=== PATIENT | female | born 1960 | race Caucasian/White ===

== ENCOUNTER 2020-03-01 14:31 | Outpatient (CLI) | payer MEDICARE, SELFPAY ==
[2020-03-01 15:08] LABS: Basophils % 0.6 %; Eosinophils # 0.3 10^3/uL (0.0-0.8); Eosinophils % 3.8 %; Hematocrit 44.7 % (37.0-47.0); Hemoglobin 14.5 g/dL (11.5-15.3); Lymphocytes # 2.4 10^3/uL (0.8-4.8); Lymphocytes % 34.1 %; Mean Corpuscular HGB Conc 32.4 g/dL (30.0-36.0); Mean Corpuscular Hemoglobin 31.5 pg (28.0-34.0); Mean Corpuscular Volume 97.2 fL (81-99); Mean Platelet Volume 9.7 fL (7.4-10.4); Monocytes # 0.7 10^3/uL (0.2-0.9); Monocytes % 9.8 %; Neutrophils # 3.6 10^3/uL (1.8-7.7); Neutrophils % 51.1 %; Nucleated Red Blood Cells % 0 %; Platelet Count 359 10^3/cmm (130-400); White Blood Count 6.9 10^3/uL (4.0-10.0)
[2020-03-02 16:36] LABS: Alternaria Alternata (M6) Ige <0.10 kU/L; Alternaria Class 0; Bermuda Class 0; Bermuda Grass (G2) Ige <0.10 kU/L; Cat Dander (E1) Ige <0.10 kU/L; Cat Dander Class 0; Common Ragweed (Short) (W1) Ig <0.10 kU/L; D. Farinae Class 0; Dermatophagoides Class 0; Dermatophagoides Farinae (D2) <0.10 kU/L; Dermatophagoides Pteronyssinus <0.10 kU/L; Dog Dander (E5) Ige <0.10 kU/L; Dog Dander Class 0; Elm (T8) Ige <0.10 kU/L; Elm Class 0; English Plantain (W9) Ige <0.10 kU/L; English Plantain Class 0; House Dust (Greer) (H1) Ige <0.10 kU/L; House Dust (Hollister- Stier) <0.10 kU/L; House Dust Class 0; Immunoglobulin E 29 kU/L (<OR=114); Immunoglobulin E 31 kU/L (<OR=114); Johnson Grass (G10) Ige <0.10 kU/L; Johnson Grass Cl 0; June Grass Class 0; June Grass(Kentucky Blue) (G8) <0.10 kU/L; Lamb'S Quarters (Goose Foot) <0.10 kU/L; Lamb'S Quarters Class 0; Maple (Box Elder) (T1) Ige <0.10 kU/L; Maple Class 0; Meadow Fescue (G4) Ige <0.10 kU/L; Meadow Fescue Class 0; Mucor Racemosus Class 0; Oak (T7) Ige <0.10 kU/L; Oak Class 0; Orchard Grass (Cocksfoot) (G3) <0.10 kU/L; Penicillium Class 0; Penicillium Notatum (M1) Ige <0.10 kU/L; Perennial Rye Grass (G5) Ige <0.10 kU/L; Perennial Rye Grass Class 0; Ragweeed Class 0; Rough Marsh Elder (W16) Ige <0.10 kU/L; Rough Marsh Elder Class 0; Sweet Vernal Class 0; Sweet Vernal Grass (G1) Ige <0.10 kU/L; Timothy Grass (G6) Ige <0.10 kU/L; Timothy Grass Class 0
[2020-03-06 16:17] LABS: Aspergillus Fumigatus, Igg Ab, 30.4 mg/L (<=102)
== END 2020-03-01 14:32 | disposition home or self-care (01) ==
LOC: LAB 14:37
PROVIDERS: Family Provider Internal Medicine; PCP Internal Medicine; Visit Provider Internal Medicine Critical Care Medicine
DX: J45.909 Unspecified asthma, uncomplicated (principal); R06.02 Shortness of breath
CPT/HCPCS: 36415; 82785; 85025; 86003

== ENCOUNTER 2020-04-07 18:32 | Emergency (ER) | payer MEDICARE, SELFPAY ==
[2020-04-07 18:39] VITALS: BP 156/93; PULSE 85; RESP 18; TEMP 36.8; O2SAT 97; BMI 35.4
[2020-04-07 20:15] LABS: Basophils # 0.1 10^3/uL (0.0-0.1); Basophils % 0.5 %; Eosinophils # 0.3 10^3/uL (0.0-0.8); Eosinophils % 2.8 %; Hematocrit 44.1 % (37.0-47.0); Hemoglobin 14.2 g/dL (11.5-15.3); Lymphocytes % 27.2 %; Mean Corpuscular HGB Conc 32.2 g/dL (30.0-36.0); Mean Corpuscular Hemoglobin 31.4 pg (28.0-34.0); Mean Corpuscular Volume 97.6 fL (81-99); Mean Platelet Volume 9.6 fL (7.4-10.4); Monocytes % 9.1 %; Neutrophils # 6.6 10^3/uL (1.8-7.7); Neutrophils % 59.9 %; Nucleated Red Blood Cells % 0 %; Platelet Count 317 10^3/cmm (130-400); Red Blood Count 4.52 10^6/uL (4.1-5.3); Red Cell Distribution Width 13.1 % (12.1-15.1)
[2020-04-07 20:32] LABS: Alanine Aminotransferase 39 U/L (0-33); Albumin Level 4.5 g/dL (3.5-5.2); Alkaline Phosphatase 72 IU/L (35-105); Anion Gap 17.1 (5-19); Aspartate Amino Transferase 22 U/L (0-32); Blood Urea Nitrogen 13 mg/dL (6-20); Calcium 9.7 mg/dL (8.5-10.5); Carbon Dioxide 26 mmol/L (22-29); Chloride 103 mmol/L (98-107); Globulin 2.3 g/dL (1.3-4.6); Glomerular Filtration Rate 51.2 mL/min (90-130); Glucose 116 mg/dL (65-115); Lipase 23 U/L (13-60); Osmolality Calculated 291 mOsm/kg (285-295); Potassium 4.1 mmol/L (3.5-5.1); Sodium 142 mmol/L (136-145); Total Bilirubin 0.3 mg/dL (0.15-1.2); Total Protein 6.8 g/dL (6.6-8.7)
[2020-04-07 20:34] LABS: Slide Review Slide Review Perform
--- NOTE | 2020-04-07 20:53 | CTR_ITS ---
PROCEDURE INFORMATION: Exam: CT Abdomen And Pelvis With Contrast Exam date and time: 04/07/2020 8:57 PM Age: 59 years old Clinical indication: Abdominal pain; Generalized; Prior surgery; Surgery type: Hysterectomy cholecystectomy bladder; Additional info: Left abd pain TECHNIQUE: Imaging protocol: Computed tomography of the abdomen and pelvis with intravenous contrast. Radiation optimization: All CT scans at this facility use at least one of these dose optimization techniques: automated exposure control; mA and/or kV adjustment per patient size (includes targeted exams where dose is matched to clinical indication); or iterative reconstruction. Contrast material: VISI; Contrast volume: 95 ml; Contrast route: 18G; COMPARISON: No relevant prior studies available. RADIATION DOSE METRICS: Total DLP: 1681.09 mGy-cm FINDINGS: Lungs: Limited assessment lung bases without visible evidence of active cardiopulmonary process. Liver: Mild diffuse fatty infiltration of the liver. Hepatomegaly. Gallbladder and bile ducts: Status post cholecystectomy. Pancreas: Normal. No ductal dilation. Spleen: Rare splenic calcified granuloma. Spleen otherwise unremarkable. Adrenals: Normal. No mass. Kidneys and ureters: Normal. No hydronephrosis. Stomach and bowel: Evidence of focal low-grade epiploic appendagitis proximal descending colon just past the splenic flexure. Diverticulosis coli without visible evidence of acute diverticulitis. Nonobstructive bowel pattern. No visible adynamic or reactive ileus. Appendix: The appendix is visualized and appears noninflamed. Intraperitoneal space: Unremarkable. No free air. No significant fluid collection. Vasculature: Unremarkable. No abdominal aortic aneurysm. Lymph nodes: Unremarkable. No enlarged lymph nodes. Bladder: Bladder without filling defect. No asymmetrical bladder wall thickening. Reproductive: Status post hysterectomy. Bones/joints: Bilateral spondylolysis L5/S1 with grade 2 spondylolisthesis. Advanced degenerative disc disease L5/S1 with disc space height loss. Soft tissues: Obesity. CT/CT abdomen pelvis w con* [id number] IMPRESSION: Evidence of focal low-grade epiploic appendagitis proximal descending colon just past the splenic flexure. Radiation Dose CTDIVOL = (mGy): DLP = 1681.09 (mGy-cm)
[2020-04-07 20:56] VITALS: BP 137/90; PULSE 92; RESP 18; O2SAT 97
[2020-04-07 21:00] LABS: Add Urine Microscopic? NO
[2020-04-07] MEDS: ondansetron 2 mg/ML SDV 2 mL 4 MG IVP (21:01)
[2020-04-07 21:02] VITALS: RESP 18; O2SAT 96
[2020-04-07 21:02] LABS: Bilirubin Urine Neg (NEGATIVE); Blood Urine Neg (Negative); Glucose Urine UA Norm (Normal); Ketones Urine Negative (Negative); Leukocyte Esterase Urine Negative (Negative); Nitrate Urine Negative (Negative); Protein Urine Neg (Negative); Specific Gravity, Urine 1.015 (1.005-1.030); Urine Appearance Clear (CLEAR); Urine Color Yellow (Yellow); Urobilinogen Urine Norm (Negative); pH Urine 5 (5-7)
[2020-04-07] MEDS: fentaNYL 50 mcg/mL INJ 2mL IVP (21:02)
--- NOTE | 2020-04-07 21:18 | ED_ITS ---
HPI - Abdominal Pain General: Chief Complaint: Abdominal Pain Stated Complaint: side pain Time Seen by Provider: 04/07/20 20:39 History of Present Illness: HPI narrative: 89-year-old female, with a stated history of diverticulitis in the past. She has been experiencing left-sided belly pain for the last couple of days. She is anorexic. No fever. No vomiting. She has had yellow liquidy stool today. No blood in the stool. History of belly surgery includes a hysterectomy and bladder tuck surgery. She has multiple family members who had diverticulitis. No pain when she urinates. No change in her urine. MD elicited complaint: abdominal pain Pertinent past history: constipation and diverticulitis Onset (ago): day(s) (2) Location: LLQ Severity: moderate Quality: stabbing and aching Radiation: none Migration to: no migration Exacerbating factors: bowel movement Relieving factors: nothing Associated Symptoms: Reports anorexia and nausea; Denies dysuria, fever(s) and hematuria Review of Systems Const: Denies: fever(s) Eyes: Denies: change in vision ENMT: Denies: swelling of lips/tongue, change in hearing or sinus pain Card: Denies: chest pain, palpitations or irregular heart rhythm Resp: Denies: dyspnea, productive cough, non-productive cough or wheezing GI: Reports: nausea : Denies: dysuria, urinary frequency, urinary urgency or hematuria Musc: Denies: neck pain or back pain Skin/Breast: Denies: rash or pruritus Neuro: Denies: headache(s), dizziness or vertigo Psych: Denies: anxiety PFSH ED PFSH: Medical History (Updated 04/07/20 @ 22:00 by Rayshawn Paris DO) Asthma Bronchitis Chronic back pain Fibromyalgia HTN (hypertension) Pneumonia Rectocele Seasonal allergies Surgical History (Updated 03/01/20 @ 14:08 by Mirza Morales MD) H/O shoulder surgery History of bladder surgery History of cholecystectomy History of hysterectomy Family History Sister Lung disease Asthma Social History Smoking and tobacco status: never smoked Second hand smoke exposure: No Alcohol intake: never Lives independently: Yes Household members: spouse Marital status: Current occupational status: disabled History of recent travel: No Current gender identity: Female Physical Exam Const: GENERAL APPEARANCE: well developed ORIENTATION/CONSCIOUSNESS: Yes oriented to person, Yes oriented to place and Yes oriented to time HENMT: COMMON NORMALS: normocephalic, external ears normal and Normal external nose present HEAD & SCALP: normocephalic FACE & SINUS: normal facial exam NOSE: Normal external nose present and No nasal discharge present EXTERNAL EAR: Yes external ears normal MOUTH: tongue normal Eye: COMMON NORMALS: Equal, round and reactive pupils present, EOMs intact bilaterally and conjunctivae normal EYELID: eyelids normal CONJUNCTIVA: Yes conjunctivae normal PUPIL: Yes Equal, round and reactive pupils present Neck/C-Spine: GENERAL: No tracheal deviation Chest: COMMONS NORMALS: normal inspection of the chest CHEST: No tenderness Resp: COMMON NORMALS: clear to auscultation bilaterally EFFORT & INSPECTION: No tachypneic, No respiratory distress, No retractions, No uses accessory muscles and No tracheal deviation AUSCULTATION: clear to auscultation bilaterally, no rhonchi, no wheezes and lung sounds not diminished Cardio: COMMON NORMALS: regular rate and regular rhythm RATE: regular rate RHYTHM: regular rhythm HEART SOUNDS: no murmurs PERIPHERAL PULSES: radial pulses present GI: INSPECTION: No abdominal distension AUSCULTATION: No Hyperactive bowel sounds present and No Hypoactive bowel sounds present PALPATION: Yes Tenderness to palpation present (GI) Details: LLQ, No Guarding due to palpation present (GI) and No Rigid due to palpation PERCUSSION: no dullness to percussion and no tympanic to percussion Neuro: SENSORIUM/ORIENTATION: Yes oriented to person, Yes oriented to place and Yes oriented to time Psych: COMMON NORMALS: mental status grossly normal Skin: COMMON NORMALS: no rashes or lesions noted GENERAL SKIN EXAM: no rashes or lesions noted Course Vital Signs: Vital signs: Vital Signs Temperature 98.2 F 04/07/20 18:39 Pulse Rate 89 04/07/20 22:18 Respiratory Rate 18 04/07/20 22:18 Blood Pressure 130/89 04/07/20 22:18 Pulse Oximetry 98 04/07/20 22:18 MDM - Abdominal Pain MDM Narrative: Medical decision making narrative: 59-year-old female with left lower quadrant pain and a family history of diverticulitis. She has a white blood cell count of 11. Other laboratory is benign. CT scan shows left-sided epiploic appendagitis. Natural history was explained to the patient as well as the usual course. She demonstrates understanding. Lab Data: Labs: Lab Results 04/07/20 04/07/20 04/07/20 Range/Units 20:00 20:00 20:50 WBC 11.0 H (4.0-10.0) 10^3/ uL RBC 4.52 (4.1-5.3) 10^6/u L Hgb 14.2 (11.5-15.3) g/dL Hct 44.1 (37.0-47.0) % MCV 97.6 (81-99) fL MCH 31.4 (28.0-34.0) pg MCHC 32.2 (30.0-36.0) g/dL RDW 13.1 (12.1-15.1) % Plt Count 317 (130-400) 10^3/c mm MPV 9.6 (7.4-10.4) fL Neut % (Auto) 59.9 % Lymph % (Auto) 27.2 % Branch % (Auto) 9.1 % Eos % (Auto) 2.8 % Baso % (Auto) 0.5 % Neut # (Auto) 6.6 (1.8-7.7) 10^3/u L Lymph # (Auto) 3.0 (0.8-4.8) 10^3/u L Branch # (Auto) 1.0 H (0.2-0.9) 10^3/u L Eos # (Auto) 0.3 (0.0-0.8) 10^3/u L Baso # (Auto) 0.1 (0.0-0.1) 10^3/u L Nucleated RBC % (a uto) 0 % Nucleated RBCs # 0.0 /100WBC Sodium 142 (136-145) mmol/L Potassium 4.1 (3.5-5.1) mmol/L Chloride 103 (98-107) mmol/L Carbon Dioxide 26 (22-29) mmol/L Anion Gap 17.1 (5-19) BUN 13 (6-20) mg/dL Creatinine 1.1 H (0.5-0.9) mg/dL GFR Calculation 51.2 L (90-130) mL/min Glucose 116 H (65-115) mg/dL Calculated Osmolal ity 291 (285-295) mOsm/k g Calcium 9.7 (8.5-10.5) mg/dL Total Bilirubin 0.3 (0.15-1.2) mg/dL AST 22 (0-32) U/L ALT 39 H (0-33) U/L Alkaline Phosphata se 72 (35-105) IU/L Total Protein 6.8 (6.6-8.7) g/dL Albumin 4.5 (3.5-5.2) g/dL Globulin 2.3 (1.3-4.6) g/dL Lipase 23 (13-60) U/L Urine Color Yellow (Yellow) Urine Appearance Clear (CLEAR) Urine pH 5 (5-7) Ur Specific Gravit y 1.015 (1.005-1.030) Urine Protein Neg (Negative) Urine Glucose (UA) Norm (Normal) Urine Ketones Negative (Negative) Urine Blood Neg (Negative) Urine Nitrate Negative (Negative) Urine Bilirubin Neg (NEGATIVE) Urine Urobilinogen Norm (Negative) mg/dL Ur Leukocyte Urvashi ase Negative (Negative) Discharge Plan Discharge Patient Disposition: Home, Self-Care Clinical Impression: Epiploic appendagitis Condition: Stable Prescriptions: [place] 7.5-325 mg tablet 1 tab PO Q6H PRN (Reason: pain) Qty: 10 RF: 0 ketorolac 10 mg tablet 10 mg PO Q6H PRN (Reason: pain) Qty: 14 RF: 0 No Action budesonide-formoterol [Symbicort] 160-4.5 mcg/actuation HFA aerosol inhaler 2 puff INHALATION BID RF: 0 albuterol sulfate 90 mcg/actuation aerosol powdr breath activated 2 inh INHALATION Q4H PRNRF: 0 fluticasone propionate [Flonase Allergy Relief] 50 mcg/actuation spray,suspension 1 spray INTRANASAL BID RF: 0 Mucinex DM 30-600 mg tablet extended release 12 hr 1 tab PO DAILY RF: 0 omeprazole 40 mg capsule,delayed release(DR/EC) 40 mg PO BID RF: 0 lisinopril 10 mg tablet 10 mg PO DAILY RF: 0 montelukast 10 mg tablet 10 mg PO DAILY RF: 0 fexofenadine [Ruby Allergy] 180 mg tablet 180 mg PO DAILY RF: 0 ipratropium-albuterol 0.5 mg-3 mg(2.5 mg base)/3 mL solution for nebulization 3 ml INHALATION Q4H PRNRF: 0 Spiriva Respimat 2.5 mcg/actuation mist 2 puff INHALATION QAM 90 Days Qty: 4 RF: 3 azelastine 137 mcg (0.1 %) aerosol,spray 1 spray INTRANASAL BID 90 Days Qty: 30 RF: 3 prednisone 20 mg tablet 40 mg PO .COMPLEX Qty: 17 RF: 0 Discharge Orders: Discharge Order (Routine); Ordered 04/07/20 Ordered By: Rayshawn Paris Referrals: Frank Michele DO [Primary Care Provider] - 4-7 days Discharge Diet: Advance as tolerated and Clear Liquid Discharge Activity: Increase activity as tolerated Activity Restrictions/Additional Instructions: Return for worsening pain despite treatment, vomiting liquids or medications, fever greater than 100, other concerning symptoms. Discharge Date/Time: 04/07/20 22:20 Coding Level of Care Code ED Certified Nurses Aide for Chg Fwd Exam Comprehensive
[2020-04-07] MEDS: iodixanol 320 mg/mL 100mL Btl IV (21:22)
[2020-04-07 22:18] VITALS: BP 130/89; PULSE 89; RESP 18; O2SAT 98
== END 2020-04-07 22:20 | disposition home or self-care (01) ==
PROVIDERS: Family Medicine; Emergency Provider Emergency Medicine; PCP Internal Medicine
DX: K63.89 Other specified diseases of intestine (principal); I10 Essential (primary) hypertension; J45.909 Unspecified asthma, uncomplicated
CPT/HCPCS: 12345; 36415; 74177; 80053; 81003; 83690; 85025; 96374; 96375; 99283; J2405; J3010; Q9967

== ENCOUNTER 2020-05-09 11:01 | Outpatient (CLI) | payer MEDICARE, SELFPAY ==
--- NOTE | 2020-05-09 14:00 | PFTS_ITS ---
Date of Study:05/09/20 Date of Dictation: MECHANICS: Forced vital capacity (FVC) is normal normal. Forced expiratory volume in one second (FEV1) is . FEV1/FVC is normal. FLOW VOLUME LOOP: Normal. LUNG VOLUMES: Total lung capacity (TLC) is normal. Residual volume (RV) is reduced. DIFFUSING CAPACITY FOR CARBON MONOXIDE: Normal. INTERPRETATION: The pulmonary function tests are normal. Lung volumes are normal. There is increased inspiratory capacity with mild reduction in residual volume consistent with changes seen in obesity. Gas exchange (DLCO) is normal. MTDD
== END 2020-05-09 11:02 | disposition home or self-care (01) ==
LOC: RT 11:03
PROVIDERS: PCP Internal Medicine; Visit Provider Internal Medicine Critical Care Medicine
DX: J45.909 Unspecified asthma, uncomplicated (principal)
CPT/HCPCS: 94010; 94726; 94729

== ENCOUNTER 2020-08-13 03:12 | Emergency (ER) | payer MEDICARE, SELFPAY ==
[2020-08-13] VITALS (7 sets, daily range): BP systolic 120–178; BP diastolic 77–109; PULSE 75–82; RESP 16–18; TEMP 36.6; O2SAT 93–98; BMI 34.4
--- NOTE | 2020-08-13 03:24 | XRR_ITS ---
PROCEDURE INFORMATION: Exam: XR Chest, 1 View Exam date and time: 08/13/2020 4:07 AM Age: 60 years old Clinical indication: Chest pain/pain in left arm TECHNIQUE: Imaging protocol: XR of the chest Views: 1 view. COMPARISON: CR XR chest 2V* [id number] 05/23/2020 12:42 PM FINDINGS: Lungs: No lung consolidation or pulmonary edema. Prior pulmonary granulomatous disease. Pleural space: No pleural effusion or pneumothorax. Heart/Mediastinum: The cardiac silhouette is not enlarged. The mediastinal contours are normal. Bones/joints: No acute osseous abnormality. Prior right shoulder surgery with a glenoid anchor present. Soft tissues: Calcified right axillary lymph node. XR/XR chest 1V portable [id number] IMPRESSION: No acute abnormality.
--- NOTE | 2020-08-13 03:24 | ECG_ITS ---
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 Measurements Intervals [place] Rate: 73 P: 44 NE: 158 QRS: 26 QRSD: 90 T: 42 QT: 365 QTc: 404 Interpretive Statements SINUS RHYTHM Compared to ECG 05/02/2019 19:51:32 No significant changes Electronically Signed On 08-13-2020 19:45:41 CDT by Barbara Mayberry M.D. [id number] f
[2020-08-13 03:52] LABS: Basophils % 0.1 %; Hemoglobin 14.4 g/dL (11.5-15.3); Lymphocytes # 2.8 10^3/uL (0.8-4.8); Mean Corpuscular HGB Conc 32.7 g/dL (30.0-36.0); Mean Corpuscular Hemoglobin 31.1 pg (28.0-34.0); Mean Platelet Volume 9.9 fL (7.4-10.4); Monocytes # 0.8 10^3/uL (0.2-0.9); Monocytes % 9.6 %; Neutrophils # 5.08 10^3/uL (1.8-7.7); Neutrophils % 57.7 %; Nucleated Red Blood Cells % 0 %; Platelet Count 311 10^3/cmm (130-400); Red Blood Count 4.63 10^6/uL (4.1-5.3); Red Cell Distribution Width 12.7 % (12.1-15.1); White Blood Count 8.8 10^3/uL (4.0-10.0)
[2020-08-13] MEDS: lidocaine 2% viscous 15 ML, aluminum-mag hydrox-simethicon 30 ML, sucralfate oral liq 1 GM PO (04:08)
[2020-08-13 04:18] LABS: INR 0.88 (0.8-1.2)
[2020-08-13 04:20] LABS: D Dimer 0.49 ug/mIFEU (0-0.59)
[2020-08-13 04:28] LABS: Troponin(5th) Baseline 7 ng/L (0-10)
[2020-08-13 04:35] LABS: Alanine Aminotransferase 32 U/L (0-33); Albumin Level 4.2 g/dL (3.5-5.2); Alkaline Phosphatase 76 IU/L (35-105); Anion Gap 15.4 (5-19); Aspartate Amino Transferase 19 U/L (0-32); Blood Urea Nitrogen 28 mg/dL (6-20); Carbon Dioxide 25 mmol/L (22-29); Chloride 102 mmol/L (98-107); Creatine Phosphokinase 243 U/L (26-192); Globulin 2.4 g/dL (1.3-4.6); Glomerular Filtration Rate 38.6 mL/min (90-130); Glucose 149 mg/dL (65-115); NT Pro B Type Natriuretic Pept 21 pg/mL (0-125); Osmolality Calculated 294 mOsm/kg (285-295); Potassium 4.4 mmol/L (3.5-5.1); Sodium 138 mmol/L (136-145); Total Bilirubin 0.2 mg/dL (0.15-1.2); Total Protein 6.6 g/dL (6.6-8.7)
--- NOTE | 2020-08-13 04:57 | ED_ITS ---
HPI - Chest Pain General: Chief Complaint: Chest Pain Stated Complaint: cp/pain in left arm Time Seen by Provider: 08/13/20 03:24 History of Present Illness: HPI narrative: 60-year-old female with a history of acid reflux. She does not have a history of coronary disease. She presents with left arm discomfort that woke her up. She says it feels like her left arm was in a vice. It is still present, although to a lesser degree. She has some left-sided chest discomfort that is more mild as well. She has a history of asthma, and is not any more short of breath than usual. No vomiting. No diarrhea. No fever. MD complaint: chest pain and chest discomfort Pertinent past history: asthma and other Onset (ago): hour(s) Timing of current episode: constant Prior episodes: Yes Onset: during rest and awoke with symptoms Pain location: left chest Pain radiation: left arm Severity: moderate Quality: tightness Exacerbating factors: nothing Associated symptoms: Deny abdominal pain, diaphoresis, dyspnea, fever(s), leg edema, nausea, palpitations or vomiting Review of Systems Const: Denies: fever(s) or diaphoresis Eyes: Denies: change in vision or blurry vision ENMT: Denies: odynophagia, swelling of lips/tongue, epistaxis, post nasal drip or sinus pain Card: Reports: chest pain and dyspnea on exertion; Denies: palpitations, irregular heart rhythm, edema, swelling of feet/ankles or orthopnea Resp: Denies: dyspnea GI: Denies: abdominal pain, nausea or vomiting : Reports: urinary frequency; Denies: dysuria, urinary urgency or hematuria Musc: Denies: neck pain or back pain Skin/Breast: Denies: rash, pruritus or erythema Neuro: Denies: headache(s), dizziness or vertigo Psych: Denies: anxiety, visual hallucinations or auditory hallucinations PFS ED PFSH: Medical History (Updated 08/13/20 @ 06:37 by Rayshawn Paris DO) Asthma Bronchitis Chronic back pain Fibromyalgia HTN (hypertension) Pneumonia Rectocele Seasonal allergies Surgical History H/O shoulder surgery History of bladder surgery History of cholecystectomy History of hysterectomy Family History Sister Lung disease Asthma Social History Smoking and tobacco status: former smoker Quit status (tobacco): has quit using tobacco Year quit tobacco: 1983 1PPDx 2years Second hand smoke exposure: No Alcohol intake: never Lives independently: Yes Household members: spouse Housing: House Marital status: Current occupational status: disabled History of recent travel: No Current gender identity: Female Physical Exam Const: GENERAL APPEARANCE: well developed ORIENTATION/CONSCIOUSNESS: Yes oriented to person, Yes oriented to place and Yes oriented to time HENMT: COMMON NORMALS: normocephalic, external ears normal and Normal external nose present HEAD & SCALP: normocephalic FACE & SINUS: normal facial exam NOSE: Normal external nose present and No nasal discharge present EXTERNAL EAR: Yes external ears normal Eye: COMMON NORMALS: Equal, round and reactive pupils present, EOMs intact bilaterally and conjunctivae normal EYELID: eyelids normal CONJUNCTIVA: Yes conjunctivae normal PUPIL: Yes Equal, round and reactive pupils present Neck/C-Spine: GENERAL: No tracheal deviation Chest: COMMONS NORMALS: normal inspection of the chest CHEST: No tenderness Resp: COMMON NORMALS: clear to auscultation bilaterally EFFORT & INSPECTION: No tachypneic, No respiratory distress, No retractions, No uses accessory muscles and No tracheal deviation AUSCULTATION: clear to auscultation bilaterally, no rhonchi, no wheezes and lung sounds not diminished Cardio: COMMON NORMALS: regular rate and regular rhythm RATE: regular rate RHYTHM: regular rhythm HEART SOUNDS: no murmurs PERIPHERAL PULSES: radial pulses present GI: INSPECTION: No abdominal distension AUSCULTATION: No Hyperactive bowel sounds present and No Hypoactive bowel sounds present PALPATION: No Guarding due to palpation present (GI) and No Rigid due to palpation PERCUSSION: no dullness to percussion and no tympanic to percussion : COMMON NORMALS: Yes no CVA tenderness BLADDER/KIDNEY EXAM: Yes no CVA tenderness Back/Pelvis: COMMON NORMALS: no CVA tenderness Neuro: SENSORIUM/ORIENTATION: Yes oriented to person, Yes oriented to place and Yes oriented to time Psych: COMMON NORMALS: mental status grossly normal Skin: COMMON NORMALS: no rashes or lesions noted GENERAL SKIN EXAM: no rashes or lesions noted Course Vital Signs: Vital signs: Vital Signs Temperature 97.9 F 10/18/20 03:17 Pulse Rate 79 08/13/20 06:32 Respiratory Rate 16 08/13/20 05:22 Blood Pressure 125/81 08/13/20 06:32 Pulse Oximetry 93 08/13/20 06:32 MDM - Chest Pain MDM Narrative: Medical decision making narrative: 60-year-old female. She was given a GI cocktail. Squeezing feeling in her left arm is decreased significantly. EKG is normal with a normal axis, rate of 70, no ST changes. Chest x-ray is negative. Her creatinine is mildly elevated. Otherwise labs are benign. We will await her second troponin. Her first 1 was 7. Lab Data: Labs: Lab Results 08/13/20 08/13/20 08/13/20 Range/Units 03:35 03:35 03:35 WBC 8.8 (4.0-10.0) 10^3/ uL RBC 4.63 (4.1-5.3) 10^6/u L Hgb 14.4 (11.5-15.3) g/dL Hct 44.0 (37.0-47.0) % MCV 95.0 (81-99) fL MCH 31.1 (28.0-34.0) pg MCHC 32.7 (30.0-36.0) g/dL RDW 12.7 (12.1-15.1) % Plt Count 311 (130-400) 10^3/c mm MPV 9.9 (7.4-10.4) fL Neut % (Auto) 57.7 % Lymph % (Auto) 32.0 % Sutton % (Auto) 9.6 % Eos % (Auto) 0.0 % Baso % (Auto) 0.1 % Neut # (Auto) 5.08 (1.8-7.7) 10^3/u L Lymph # (Auto) 2.8 (0.8-4.8) 10^3/u L [place] # (Auto) 0.8 (0.2-0.9) 10^3/u L Eos # (Auto) 0.0 (0.0-0.8) 10^3/u L Baso # (Auto) 0.0 (0.0-0.1) 10^3/u L Nucleated RBC % (a uto) 0 % Nucleated RBCs # 0.0 /100WBC PT 12.20 (12.1-14.9) SECO NDS INR 0.88 (0.8-1.2) D-Dimer 0.49 (0-0.59) ug/mIFE U Sodium 138 (136-145) mmol/L Potassium 4.4 (3.5-5.1) mmol/L Chloride 102 (98-107) mmol/L Carbon Dioxide 25 (22-29) mmol/L Anion Gap 15.4 (5-19) BUN 28 H (6-20) mg/dL Creatinine 1.4 H (0.5-0.9) mg/dL GFR Calculation 38.6 L (90-130) mL/min Glucose 149 H (65-115) mg/dL Calculated Osmolal ity 294 (285-295) mOsm/k g Calcium 10.0 (8.5-10.5) mg/dL Total Bilirubin 0.2 (0.15-1.2) mg/dL AST 19 (0-32) U/L ALT 32 (0-33) U/L Alkaline Phosphata se 76 (35-105) IU/L Creatine Kinase 243 H (26-192) U/L Troponin T Baselin e (0-10) ng/L Troponin T 120 Min kranthi (0-10) ng/L Delta Troponin T (0-10) ABS# NT-Pro-B Natriuret Pep 21 (0-125) pg/mL Total Protein 6.6 (6.6-8.7) g/dL Albumin 4.2 (3.5-5.2) g/dL Globulin 2.4 (1.3-4.6) g/dL 08/13/20 08/13/20 Range/Units 03:35 05:48 WBC (4.0-10.0) 10^3/ uL RBC (4.1-5.3) 10^6/u L Hgb (11.5-15.3) g/dL Hct (37.0-47.0) % MCV (81-99) fL MCH (28.0-34.0) pg MCHC (30.0-36.0) g/dL RDW (12.1-15.1) % Plt Count (130-400) 10^3/c mm MPV (7.4-10.4) fL Neut % (Auto) % Lymph % (Auto) % Sutton % (Auto) % Eos % (Auto) % Baso % (Auto) % Neut # (Auto) (1.8-7.7) 10^3/u L Lymph # (Auto) (0.8-4.8) 10^3/u L Sutton # (Auto) (0.2-0.9) 10^3/u L Eos # (Auto) (0.0-0.8) 10^3/u L Baso # (Auto) (0.0-0.1) 10^3/u L Nucleated RBC % (a uto) % Nucleated RBCs # /100WBC PT (12.1-14.9) SECO NDS INR (0.8-1.2) D-Dimer (0-0.59) ug/mIFE U Sodium (136-145) mmol/L Potassium (3.5-5.1) mmol/L Chloride (98-107) mmol/L Carbon Dioxide (22-29) mmol/L Anion Gap (5-19) BUN (6-20) mg/dL Creatinine (0.5-0.9) mg/dL GFR Calculation (90-130) mL/min Glucose (65-115) mg/dL Calculated Osmolal ity (285-295) mOsm/k g Calcium (8.5-10.5) mg/dL Total Bilirubin (0.15-1.2) mg/dL AST (0-32) U/L ALT (0-33) U/L Alkaline Phosphata se (35-105) IU/L Creatine Kinase (26-192) U/L Troponin T Baselin e 7 (0-10) ng/L Troponin T 120 Min kranthi 7.02 (0-10) ng/L Delta Troponin T 0.02 (0-10) ABS# NT-Pro-B Natriuret Pep (0-125) pg/mL Total Protein (6.6-8.7) g/dL Albumin (3.5-5.2) g/dL Globulin (1.3-4.6) g/dL Discharge Plan Discharge Patient Disposition: Home Clinical Impression: Chest pain Qualifiers: Chest pain type: unspecified Qualified Code(s): R07.9 - Chest pain, unspecified Condition: Stable Prescriptions: No Action budesonide-formoterol [Symbicort] 160-4.5 mcg/actuation HFA aerosol inhaler 2 puff INHALATION BID RF: 0 albuterol sulfate 90 mcg/actuation aerosol powdr breath activated 2 inh INHALATION Q4H PRNRF: 0 fluticasone propionate [Flonase Allergy Relief] 50 mcg/actuation spray,suspension 1 spray INTRANASAL BID RF: 0 Mucinex DM 30-600 mg tablet extended release 12 hr 1 tab PO DAILY RF: 0 omeprazole 40 mg capsule,delayed release(DR/EC) 40 mg PO BID RF: 0 lisinopril 10 mg tablet 10 mg PO DAILY RF: 0 ipratropium-albuterol 0.5 mg-3 mg(2.5 mg base)/3 mL solution for nebulization 3 ml INHALATION Q4H PRNRF: 0 Spiriva Respimat 2.5 mcg/actuation mist 2 puff INHALATION QAM 90 Days Qty: 4 RF: 3 levocetirizine 5 mg tablet 5 mg PO DAILY RF: 0 fluticasone propion-salmeterol [Advair Diskus] 250-50 mcg/dose blister with device 1 inh INHALATION Q12H 30 Days Qty: 60 RF: 3 Fasenra Pen 30 mg/mL auto-injector 30 mg SUBCUT Q28D Qty: 1 RF: 3 azelastine 137 mcg (0.1 %) aerosol,spray See Rx Instructions .ROUTE .COMPLEX Qty: 30 RF: 3 Discharge Orders: Discharge Order (Routine); Ordered 08/13/20 Ordered By: Rayshawn Paris Referrals: Frank Michele DO [Primary Care Provider] - 4-7 days Discharge Diet: Advance as tolerated Discharge Activity: Increase activity as tolerated Patient Instructions: Chest Pain (ED) Activity Restrictions/Additional Instructions: Return for repeated episodes of chest pain, shortness of breath, fever, cough, other concerning symptoms. You should speak with your physician about any further outpatient testing that may be need to be done. 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
--- NOTE | 2020-08-13 05:24 | ECG_ITS ---
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 Measurements Intervals [place] Rate: 72 P: 31 HI: 154 QRS: 16 QRSD: 97 T: 44 QT: 372 QTc: 408 Interpretive Statements SINUS RHYTHM Compared to ECG 08/13/2020 03:21:19 No significant changes Electronically Signed On 08-13-2020 19:54:13 CDT by Barbara Mayberry M.D. [email or web address] [email or web address] hospitals [email or web address]/store/[id number]
[2020-08-13 06:34] LABS: Troponin 5 2HR 7.02 ng/L (0-10); Troponin 5 2HR Delta 0.02 ABS# (0-10)
== END 2020-08-13 06:49 | disposition home or self-care (01) ==
PROVIDERS: Emergency Provider Emergency Medicine; PCP Internal Medicine
DX: R07.9 Chest pain, unspecified (principal); I10 Essential (primary) hypertension; Z87.891 Personal history of nicotine dependence
CPT/HCPCS: 12345; 71045; 80053; 82550; 83880; 84484; 85025; 85378; 85610; 93005; 99283; 99284

== ENCOUNTER 2020-09-21 16:06 | Observation (INO) | payer MEDICARE, SELFPAY ==
[2020-09-21 16:25] VITALS: BP 110/52; PULSE 92; RESP 18; TEMP 36.9; O2SAT 96; BMI 34.0
--- NOTE | 2020-09-21 17:02 | CTR_ITS ---
PROCEDURE INFORMATION: Exam: CT Abdomen And Pelvis With Contrast Exam date and time: 09/21/2020 5:16 PM Age: 60 years old Clinical indication: Abdominal pain; Localized; Left lower quadrant (llq); Prior surgery; Surgery type: Gb, hyst; Additional info: Llq pain, history of diverticulitis TECHNIQUE: Imaging protocol: Computed tomography of the abdomen and pelvis with intravenous contrast. Radiation optimization: All CT scans at this facility use at least one of these dose optimization techniques: automated exposure control; mA and/or kV adjustment per patient size (includes targeted exams where dose is matched to clinical indication); or iterative reconstruction. Contrast material: VISI 320; Contrast volume: 95 ml; Contrast route: INTRAVENOUS (IV); COMPARISON: CT abdomen pelvis w con* [id number] 04/07/2020 9:12 PM RADIATION DOSE METRICS: Total DLP (mGy-cm): 1484.68 FINDINGS: Lungs: New 7 mm nodular density in the peripheral right middle lobe. Liver: Diffuse fatty infiltration of the liver. Gallbladder and bile ducts: Cholecystectomy. Bile ducts are normal. Pancreas: Normal. No ductal dilation. Spleen: Calcified granuloma in a normal sized spleen. Adrenal glands: Normal. No mass. Kidneys and ureters: Normal. No hydronephrosis. Stomach and bowel: Diverticulosis of the descending and sigmoid colon. 1.8 cm focal fat stranding anterior to the distal descending colon, without a visible diverticulum. Mild scarring in the fat anterior to the proximal descending colon, in the region of previous epiploic appendagitis. The stomach and small bowel are unremarkable. Appendix: The appendix is normal. Intraperitoneal space: Unremarkable. No free air. No significant fluid collection. Vasculature: Unremarkable. No abdominal aortic aneurysm. Lymph nodes: Mild haziness surrounding multiple tiny mesenteric lymph nodes and mesenteric vessels. Urinary bladder: Unremarkable as visualized. Reproductive: Hysterectomy. The ovaries are normal. Bones/joints: Chronic bilateral L5 pars fractures with grade 2 anterior subluxation. No compression fracture. Soft tissues: Unremarkable. CT/CT abdomen pelvis w con* [id number] IMPRESSION: 1. Epiploic appendagitis versus mild acute diverticulitis involving the distal descending colon. 2. Haziness surrounding the mesenteric vessels and small lymph nodes most likely represents mesenteritis. 3. New 7 mm right lung nodule. For patients at low risk (minimal or absent history of smoking and of other known risk factors), recommend CT Chest at 6-12 months, then consider CT Chest at 18-24 months. For patients at high risk (history of smoking or of other known risk factors), recommend CT Chest at 6-12 months, then CT Chest at 18-24 months. (Reference: Darling) References: Darling Matute et al. Guidelines for Management of Incidental Pulmonary Nodules Detected on CT Images: From the Fleischner Society 2017. Radiology. 2017;284(1):228-243. Radiation Dose CTDIVOL = (mGy): DLP = 1484.68 (mGy-cm)
--- NOTE | 2020-09-21 17:07 | ED_ITS ---
HPI - Abdominal Pain General: Chief Complaint: Abdominal Pain Stated Complaint: lower abd pain Time Seen by Provider: 09/21/20 16:29 Source: patient Mode of arrival: ambulatory Limitations: no limitations History of Present Illness: HPI narrative: 60-year-old female with a history of diverticulitis who developed left lower quadrant pain about 4 days ago. After a couple of days she went to see her primary care provider who felt it was another episode of diverticulitis so he gave her 2 antibiotics but she says the pain has been worsening and last night she run a fever all night. She states that her temp was about 100 degrees all night. She is therefore here to be evaluated. MD elicited complaint: abdominal pain Pertinent past history: diverticulitis Onset (ago): day(s) (4) Pain Consistency: constant Location: LLQ Severity: severe Quality: cramping Radiation: none Migration to: no migration Exacerbating factors: nothing Relieving factors: nothing Context: foreign travel Associated Symptoms: Reports fever(s) and nausea; Denies anorexia, belching, bloating, change in bowel habits, change in stool character, chills, coffee ground emesis, constipation, GI cramping, diarrhea, dyspepsia, dysuria, excessive flatus, heartburn, hematochezia, hematuria, hematemesis, fecal incontinence, loose stools, melena, poor appetite, syncope and vomiting Treatments prior to arrival: NSAIDs Review of Systems General: Reports: 10 or more systems reviewed and unremarkable except in HPI and below Const: Reports: fever(s); Denies: chills Eyes: Denies: change in vision or blurry vision ENMT: Denies: throat pain, enlarged tonsils, odynophagia, hoarseness, mouth pain or swelling of lips/tongue Card: Denies: syncope Resp: Denies: dyspnea, productive cough or non-productive cough GI: Reports: nausea; Denies: vomiting, hematemesis, coffee ground emesis, heartburn, diarrhea, constipation, bloating, GI cramping, belching, excessive flatus, fecal incontinence, change in bowel habits, change in stool character, hematochezia or melena : Denies: dysuria or hematuria Musc: Denies: neck pain, back pain or extremity swelling Skin/Breast: Denies: rash, pruritus or erythema Neuro: Denies: headache(s), numbness in extremities or weakness in extremities Endo: Denies: polyuria, polydipsia or tired all the time PFSH ED PFSH: Medical History (Updated 09/21/20 @ 21:40 by Grecia Heart MD) Asthma Bronchitis Chronic back pain Fibromyalgia HTN (hypertension) Pneumonia Rectocele Seasonal allergies Surgical History (Reviewed 09/21/20 @ 17:18 by Emanuel Sargent MD, [facility] [place]) H/O shoulder surgery History of bladder surgery History of cholecystectomy History of hysterectomy Family History Sister Lung disease Asthma Social History (Reviewed 09/21/20 @ 17:18 by Emanuel Sargent MD, [facility] [place]) Smoking and tobacco status: former smoker Quit status (tobacco): has quit using tobacco Year quit tobacco: 1983 1PPDx 2years Second hand smoke exposure: No Alcohol intake: never Lives independently: Yes Household members: spouse Housing: House Marital status: Current occupational status: disabled History of recent travel: No Current gender identity: Female Physical Exam Const: COMMON NORMALS: no acute distress, average body habitus, patient oriented x3, no limitations, healthy appearing, alert and well nourished HENMT: COMMON NORMALS: normocephalic, atraumatic and moist oral mucous membranes HEAD & SCALP: normocephalic and atraumatic Neck/C-Spine: COMMON NORMALS: no meningeal signs and no JVD Resp: COMMON NORMALS: normal respiratory effort, No retractions, No use of accessory muscles, clear to auscultation bilaterally and percussion normal AUSCULTATION: clear to auscultation bilaterally PERCUSSION: percussion normal Cardio: COMMON NORMALS: no JVD, regular rate, regular rhythm, S1 normal heart sound present, S2 normal heart sound present, No gallops present (Cardio), No clicks present (Cardio), No murmurs present (Cardio), No rub (Cardio) and Peripheral pulses 2+ throughout RATE: regular rate RHYTHM: regular rhythm HEART SOUNDS: S1 normal heart sound present and S2 normal heart sound present PERIPHERAL PULSES: Peripheral pulses 2+ throughout GI: COMMON NORMALS: Normal to inspection, nondistended, normoactive bowel sounds present, Soft to palpation, non-tender, No hepatosplenomegaly present, no masses and no bruits PALPATION: Yes Soft to palpation, Yes Tenderness to palpation present (GI) Details: LLQ, Yes Guarding due to palpation present (GI) and Yes No hepatosplenomegaly present Extremity: COMMON NORMALS: normal to inspection, full ROM, capillary refill normal, no calf tenderness and no pedal edema Neuro: COMMON NORMALS: patient oriented x3 SENSORIUM/ORIENTATION: Yes alert MENINGEAL SIGNS: Yes no meningeal signs Skin: COMMON NORMALS: no rashes or lesions noted, no wounds, turgor normal, no jaundice, no petechiae and no mottling GENERAL SKIN EXAM: no rashes or lesions noted and turgor normal Course Reevaluation(s): Reevaluation #1: Discussed her lab and imaging findings with her. She has mild acute diverticulitis, however because she is hypotensive and has failed an outpatient therapy I think is advisable to admit her to the hospital for hydration and intravenous antibiotics. She voiced understanding and is in agreement with the plan. Time: 19:30 Consultations: Consultation #1: Discussed the patient with Dr. Heart, hospitalist. She kindly accepted the patient to her service Time: 19:48 Vital Signs: Vital signs: Vital Signs Temperature 98.6 F 09/21/20 20:33 Pulse Rate 88 09/21/20 21:32 Respiratory Rate 16 09/21/20 21:32 Blood Pressure 112/55 09/21/20 21:32 Pulse Oximetry 94 09/21/20 21:32 MDM - Abdominal Pain MDM Narrative: Medical decision making narrative: 60-year-old female patient with acute diverticulitis. She has been on oral antibiotics and symptoms have been worsening. CT scan shows an uncomplicated diverticulitis but since she has failed outpatient therapy and was hypotensive in the emergency department she is admitted for further evaluation and management. Hypotension responded to fluid hydration, however she was not tachycardic nor did she have a fever. Lactic acid was normal Medical Records: Attestation: I reviewed the patient's medical records. Lab Data: Attestation: I reviewed the patient's lab results. Labs: Lab Results 09/21/20 09/21/20 09/21/20 Range/Units 17:17 17:17 17:36 WBC 13.9 H (4.0-10.0) 10^3/ uL RBC 4.57 (4.1-5.3) 10^6/u L Hgb 14.1 (11.5-15.3) g/dL Hct 43.2 (37.0-47.0) % MCV 94.5 (81-99) fL MCH 30.9 (28.0-34.0) pg MCHC 32.6 (30.0-36.0) g/dL RDW 13.2 (12.1-15.1) % Plt Count 276 (130-400) 10^3/c mm MPV 9.6 (7.4-10.4) fL Neut % (Auto) 92.0 % Lymph % (Auto) 2.0 % [place] % (Auto) 5.1 % Eos % (Auto) 0.1 % Baso % (Auto) 0.1 % Neut # (Auto) 12.73 H (1.8-7.7) 10^3/u L Lymph # (Auto) 0.3 L (0.8-4.8) 10^3/u L [place] # (Auto) 0.7 (0.2-0.9) 10^3/u L Eos # (Auto) 0.0 (0.0-0.8) 10^3/u L Baso # (Auto) 0.0 (0.0-0.1) 10^3/u L Nucleated RBC % (a uto) 0 % Nucleated RBCs # 0.0 /100WBC Sodium 129 L (136-145) mmol/L Potassium 4.0 (3.5-5.1) mmol/L Chloride 96 L (98-107) mmol/L Carbon Dioxide 21 L (22-29) mmol/L Anion Gap 16.0 (5-19) BUN 18 (6-20) mg/dL Creatinine 1.3 H (0.5-0.9) mg/dL GFR Calculation 42.1 L (90-130) mL/min Glucose 118 H (65-115) mg/dL Calculated Osmolal ity 271 L (285-295) mOsm/k g Lactate (0.5-2.2) mmol/L Calcium 8.8 (8.5-10.5) mg/dL Total Bilirubin 0.9 (0.15-1.2) mg/dL AST 180 H (0-32) U/L ALT 162 H (0-33) U/L Alkaline Phosphata se 83 (35-105) IU/L Creatine Kinase 235 H (26-192) U/L C-Reactive Protein 67.1 H (0.0-4.9) mg/L Total Protein 6.5 L (6.6-8.7) g/dL Albumin 4.0 (3.5-5.2) g/dL Globulin 2.5 (1.3-4.6) g/dL Lipase 17 (13-60) U/L Urine Color Yellow (Yellow) Urine Appearance Clear (CLEAR) Urine pH 5 (5-7) Ur Specific Gravit y 1.010 (1.005-1.030) Urine Protein Neg (Negative) Urine Glucose (UA) Norm (Normal) Urine Ketones 1+ H (Negative) Urine Blood Neg (Negative) Urine Nitrate Negative (Negative) Urine Bilirubin Neg (Negative) Urine Urobilinogen Norm (Negative) mg/dL Ur Leukocyte Urvashi ase 1+ H (Negative) Urine RBC 0-4 H (0-2) /hpf Urine WBC 10-15 H (0-5) /hpf Ur Squamous Epith Cells 15-25 H (0-5) /hpf Amorphous Sediment Not Reportable Urine Bacteria 1+ H (NONE) /hpf Urine Mucus 3+ /hpf Influenza Type A A g (Negative) Influenza Type B A g (Negative) SARS-CoV-2 Ag (Rap id) (Negative) 09/21/20 09/21/20 09/21/20 Range/Units 17:38 20:00 20:00 WBC (4.0-10.0) 10^3/ uL RBC (4.1-5.3) 10^6/u L Hgb (11.5-15.3) g/dL Hct (37.0-47.0) % MCV (81-99) fL MCH (28.0-34.0) pg MCHC (30.0-36.0) g/dL RDW (12.1-15.1) % Plt Count (130-400) 10^3/c mm MPV (7.4-10.4) fL Neut % (Auto) % Lymph % (Auto) % [place] % (Auto) % Eos % (Auto) % Baso % (Auto) % Neut # (Auto) (1.8-7.7) 10^3/u L Lymph # (Auto) (0.8-4.8) 10^3/u L [place] # (Auto) (0.2-0.9) 10^3/u L Eos # (Auto) (0.0-0.8) 10^3/u L Baso # (Auto) (0.0-0.1) 10^3/u L Nucleated RBC % (a uto) % Nucleated RBCs # /100WBC Sodium (136-145) mmol/L Potassium (3.5-5.1) mmol/L Chloride (98-107) mmol/L Carbon Dioxide (22-29) mmol/L Anion Gap (5-19) BUN (6-20) mg/dL Creatinine (0.5-0.9) mg/dL GFR Calculation (90-130) mL/min Glucose (65-115) mg/dL Calculated Osmolal ity (285-295) mOsm/k g Lactate 0.8 (0.5-2.2) mmol/L Calcium (8.5-10.5) mg/dL Total Bilirubin (0.15-1.2) mg/dL AST (0-32) U/L ALT (0-33) U/L Alkaline Phosphata se (35-105) IU/L Creatine Kinase (26-192) U/L C-Reactive Protein (0.0-4.9) mg/L Total Protein (6.6-8.7) g/dL Albumin (3.5-5.2) g/dL Globulin (1.3-4.6) g/dL Lipase (13-60) U/L Urine Color (Yellow) Urine Appearance (CLEAR) Urine pH (5-7) Ur Specific Gravit y (1.005-1.030) Urine Protein (Negative) Urine Glucose (UA) (Normal) Urine Ketones (Negative) Urine Blood (Negative) Urine Nitrate (Negative) Urine Bilirubin (Negative) Urine Urobilinogen (Negative) mg/dL Ur Leukocyte Urvashi ase (Negative) Urine RBC (0-2) /hpf Urine WBC (0-5) /hpf Ur Squamous Epith Cells (0-5) /hpf Amorphous Sediment Urine Bacteria (NONE) /hpf Urine Mucus /hpf Influenza Type A A g Negative (Negative) Influenza Type B A g Negative (Negative) SARS-CoV-2 Ag (Rap id) Negative (Negative) Imaging Data ^: CT Abd/Pel: Radiologist's impression: [address] [address] [address] Scan Report Signed Patient: Heather Colon #: [id number] : 2Acct#:[id number] Age/Sex: 60 / FADM Date: 09/21/20 Loc: ERRoom/Bed: Attending Dr: Ordering Provider/Ordering MD: Emanuel Sargent MD, [facility] [place] Date of Service: 09/21/20 Procedure(s): CT abdomen pelvis w con* [id number] Accession Number(s): [id number] Report Number: [id number] PROCEDURE INFORMATION: Exam: CT Abdomen And Pelvis With Contrast Exam date and time: 09/21/2020 5:16 PM Age: 60 years old Clinical indication: Abdominal pain; Localized; Left lower quadrant (llq); Prior surgery; Surgery type: Gb, hyst; Additional info: Llq pain, history of diverticulitis TECHNIQUE: Imaging protocol: Computed tomography of the abdomen and pelvis with intravenous contrast. Radiation optimization: All CT scans at this facility use at least one of these dose optimization techniques: automated exposure control; mA and/or kV adjustment per patient size (includes targeted exams where dose is matched to clinical indication); or iterative reconstruction. Contrast material: VISI 320; Contrast volume: 95 ml; Contrast route: INTRAVENOUS (IV); COMPARISON: CT abdomen pelvis w con* [id number] 04/07/2020 9:12 PM RADIATION DOSE METRICS: Total DLP (mGy-cm): 1484.68 FINDINGS: Lungs: New 7 mm nodular density in the peripheral right middle lobe. Liver: Diffuse fatty infiltration of the liver. Gallbladder and bile ducts: Cholecystectomy. Bile ducts are normal. Pancreas: Normal. No ductal dilation. Spleen: Calcified granuloma in a normal sized spleen. Adrenal glands: Normal. No mass. Kidneys and ureters: Normal. No hydronephrosis. Stomach and bowel: Diverticulosis of the descending and sigmoid colon. 1.8 cm focal fat stranding anterior to the distal descending colon, without a visible diverticulum. Mild scarring in the fat anterior to the proximal descending colon, in the region of previous epiploic appendagitis. The stomach and small bowel are unremarkable. Appendix: The appendix is normal. Intraperitoneal space: Unremarkable. No free air. No significant fluid collection. Vasculature: Unremarkable. No abdominal aortic aneurysm. Lymph nodes: Mild haziness surrounding multiple tiny mesenteric lymph nodes and mesenteric vessels. Urinary bladder: Unremarkable as visualized. Reproductive: Hysterectomy. The ovaries are normal. Bones/joints: Chronic bilateral L5 pars fractures with grade 2 anterior subluxation. No compression fracture. Soft tissues: Unremarkable. CT/CT abdomen pelvis w con* [id number] IMPRESSION: 1. Epiploic appendagitis versus mild acute diverticulitis involving the distal descending colon. 2. Haziness surrounding the mesenteric vessels and small lymph nodes most likely represents mesenteritis. 3. New 7 mm right lung nodule. For patients at low risk (minimal or absent history of smoking and of other known risk factors), recommend CT Chest at 6-12 months, then consider CT Chest at 18-24 months. For patients at high risk (history of smoking or of other known risk factors), recommend CT Chest at 6-12 months, then CT Chest at 18-24 months. (Reference: Darling) References: Madelynhotheodore H, et al. Guidelines for Management of Incidental Pulmonary Nodules Detected on CT Images: From the Fleischner Society 2017. Radiology. 2017;284(1):228-243. 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
[2020-09-21] MEDS: ondansetron 2 mg/ML SDV 2 mL 4 MG IVP (17:17)
[2020-09-21 17:23] LABS: Basophils % 0.1 %; Eosinophils % 0.1 %; Hematocrit 43.2 % (37.0-47.0); Hemoglobin 14.1 g/dL (11.5-15.3); Lymphocytes # 0.3 10^3/uL (0.8-4.8); Mean Corpuscular HGB Conc 32.6 g/dL (30.0-36.0); Mean Corpuscular Hemoglobin 30.9 pg (28.0-34.0); Mean Corpuscular Volume 94.5 fL (81-99); Mean Platelet Volume 9.6 fL (7.4-10.4); Monocytes # 0.7 10^3/uL (0.2-0.9); Monocytes % 5.1 %; Neutrophils # 12.73 10^3/uL (1.8-7.7); Nucleated Red Blood Cells % 0 %; Platelet Count 276 10^3/cmm (130-400); Red Blood Count 4.57 10^6/uL (4.1-5.3); Red Cell Distribution Width 13.2 % (12.1-15.1); White Blood Count 13.9 10^3/uL (4.0-10.0)
[2020-09-21 17:40] VITALS: BP 100/61; PULSE 71; RESP 18; O2SAT 96
[2020-09-21 17:41] LABS: Alanine Aminotransferase 162 U/L (0-33); Alkaline Phosphatase 83 IU/L (35-105); Aspartate Amino Transferase 180 U/L (0-32); Blood Urea Nitrogen 18 mg/dL (6-20); C Reactive Protein 67.1 mg/L (0.0-4.9); Calcium 8.8 mg/dL (8.5-10.5); Carbon Dioxide 21 mmol/L (22-29); Chloride 96 mmol/L (98-107); Creatine Phosphokinase 235 U/L (26-192); Globulin 2.5 g/dL (1.3-4.6); Glomerular Filtration Rate 42.1 mL/min (90-130); Glucose 118 mg/dL (65-115); Lipase 17 U/L (13-60); Osmolality Calculated 271 mOsm/kg (285-295); Sodium 129 mmol/L (136-145); Total Bilirubin 0.9 mg/dL (0.15-1.2); Total Protein 6.5 g/dL (6.6-8.7)
[2020-09-21 18:02] LABS: Add Urine Microscopic? YES; Bilirubin Urine Neg (Negative); Blood Urine Neg (Negative); Glucose Urine UA Norm (Normal); Ketones Urine 1+ (Negative); Leukocyte Esterase Urine 1+ (Negative); Nitrate Urine Negative (Negative); Protein Urine Neg (Negative); Urine Appearance Clear (CLEAR); Urine Color Yellow (Yellow); Urobilinogen Urine Norm (Negative); pH Urine 5 (5-7)
[2020-09-21 18:05] LABS: Lactate (Lactic Acid level) 0.8 mmol/L (0.5-2.2)
[2020-09-21 18:08] LABS: Add Urine Culture? No; Bacteria Urine 1+ /hpf; Mucus Urine 3+ /hpf; RBC Urine 0-4 /hpf (0-2); Squamous Epithelial Cell Urine 15-25 /hpf (0-5)
[2020-09-21] MEDS: iodixanol 320 mg/mL 100mL Btl IV (18:18)
[2020-09-21] MEDS: sodium chloride 0.9% 1,000 ML 999 ML IV (18:26)
[2020-09-21] MEDS: piperacillin-tazobactam 3.375 GM in sodium chloride 0.9% (plus) 50 ML IV (20:06)
[2020-09-21 20:12] VITALS: BP 99/53; PULSE 86; O2SAT 94
--- NOTE | 2020-09-21 20:12 | P.HP_ITS ---
Providers/Chief Complaint Primary Care Provider: Frank Michele DO Chief Complaint: lower abd pain History of Present Illness Heather Colon is a 60 year old female with PMH of HTN, severe persistent non allergic eosinophilic asthma Symbicort, Spiriva, Singulair and was started on benralizumab May 2020 p/w LLQ pain starting 4-5 days ago. Started on abx as outpatient (unknown which ones) however continued to be symptomatic and now also developed fever overnight which prompted ED visit. No c/o nausea or vomiting. Labs with leukocytosis of 13.9, na 129. cr 1.3(close to recent baseline, lactate 0.8, transaminitis. Ct abdomen/pelvis with Epiploic appendagitis versus mild acute diverticulitis involving the distal descending colon + mesenteritis. rapid covid negative. Similar findings noted on Ct from 03/2020 Review of Systems General: Reports: 10 or more systems reviewed and unremarkable except in HPI and below Const: Reports: fever(s) and chills; Denies: body aches Eyes: Denies: change in vision, blurry vision or photophobia ENMT: Reports: hoarseness; Denies: throat pain, enlarged tonsils, odynophagia or nasal congestion Card: Denies: chest pain, palpitations, irregular heart rhythm, edema, swelling of feet/ankles, lightheadedness, pre-syncope, dyspnea on exertion or orthopnea Resp: Denies: dyspnea, productive cough, non-productive cough, wheezing, stridor, pain on inspiration, change in phlegm color, hemoptysis or chest congestion GI: Denies: abdominal pain, nausea, vomiting, hematemesis, coffee ground emesis, dysphagia, heartburn, diarrhea, constipation, GI cramping, change in stool character, hematochezia or melena : Denies: flank pain, difficulty voiding, dysuria, urinary frequency, urinary urgency, urinary hesitancy or hematuria Musc: Denies: neck pain, back pain, extremity pain, joint swelling, joint warmth or deformity Neuro: Denies: headache(s), numbness in extremities, weakness in extremities, sensory changes, difficulty walking, frequent falls, dizziness, vertigo, behavioral changes, Slurred speech present or seizure-like activity Psych: Denies: anxiety, depression, suicidal ideation or homicidal ideation Endo: Denies: polyuria, polydipsia, tired all the time, cold intolerance or hot flashes Drew/Lymph: Denies: easy bruising or easy bleeding Medications/Allergies Home Medications Medication Instructions Recorded Confirmed Last Taken Type albuterol sulfate 90 mcg/actuation 2 inh INHALATION Q4H PRN 03/01/20 07/26/20 Unknown History breath activated powder inhaler budesonide-formoterol HFA 160 2 puff INHALATION BID 03/01/20 07/26/20 Unknown History mcg-4.5 mcg/actuation aerosol inhaler dextromethorphan-guaifenesin 30 1 tab PO DAILY tab 03/01/20 07/26/20 Unknown History mg-600 mg tablet extended [id number] hr fluticasone propionate 50 1 spray INTRANASAL BID 03/01/20 07/26/20 Unknown History mcg/actuation nasal spray,suspension ipratropium 0.5 mg-albuterol 3 mg 3 ml INHALATION Q4H PRN 03/01/20 07/26/20 Unknown History (2.5 mg base)/3 mL nebulization soln lisinopril 10 mg tablet 10 mg PO DAILY 03/01/20 07/26/20 Unknown History omeprazole 40 mg capsule,delayed 40 mg PO BID 03/01/20 07/26/20 Unknown History release tiotropium bromide 2.5 2 puff INHALATION QAM 90 Days #4 gm 03/01/20 07/26/20 Unknown Rx mcg/actuation mist for inhalation benralizumab 30 mg/mL subcutaneous 30 mg SUBCUT Q28D #1 ml 06/28/20 07/26/20 Unknown Rx auto-injector fluticasone 250 mcg-salmeterol 50 1 inh INHALATION Q12H 30 Days #60 07/26/20 07/26/20 Unknown Rx mcg/dose blistr powdr for each inhalation levocetirizine 5 mg tablet 5 mg PO DAILY 07/26/20 07/26/20 Unknown History azelastine 137 mcg (0.1 %) nasal See Rx Instructions .ROUTE 08/02/20 Unknown Rx spray aerosol .COMPLEX #30 spray Allergies Allergy/AdvReac Type Severity Reaction Status Date / Time piperacillin [From Zosyn] Allergy Mild ALGY-Rash Verified 09/21/20 20:52 tazobactam [From Zosyn] Allergy Mild ALGY-Rash Verified 09/21/20 20:52 morphine AdvReac Severe ADR-Vomitin Verified 09/21/20 16:28 g PFSH Acute PFSH: Medical History (Updated 09/21/20 @ 21:40 by Grecia Heart MD) Asthma Bronchitis Chronic back pain Fibromyalgia HTN (hypertension) Pneumonia Rectocele Seasonal allergies Surgical History H/O shoulder surgery History of bladder surgery History of cholecystectomy History of hysterectomy Family History Sister Lung disease Asthma Social History Smoking and tobacco status: former smoker Quit status (tobacco): has quit using tobacco Year quit tobacco: 1983 1PPDx 2years Second hand smoke exposure: No Alcohol intake: never Lives independently: Yes Household members: spouse Housing: House Marital status: Current occupational status: disabled History of recent travel: No Current gender identity: Female Vitals/I&O/Wt Last Vital Signs Temp 98.5 F 09/21/20 16:25 Pulse 71 09/21/20 17:40 Resp 18 09/21/20 17:40 BP 100/61 09/21/20 17:40 Pulse Ox 96 09/21/20 17:40 Weight last 48 hrs Weight 98.43 kg Physical Exam Narrative: EXAM NARRATIVE: GEN: Awake, alert and oriented, no acute distress CVS: S1S2 N RS: CTA B/L Abd: Soft, nt/nd , bs+ 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 s/p cholecystectomy, normal bile ducts. 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
[2020-09-21] MEDS: diphenhydrAMINE 50 mg/mL SDV 1mL IVP (20:27)
[2020-09-21 20:33] VITALS: BP 116/50; PULSE 91; RESP 92; TEMP 37
[2020-09-21 20:37] LABS: Influenza A by IFA Negative (Negative); Influenza B by IFA Negative (Negative)
[2020-09-21 20:38] LABS: SARS Covid-2 Antigen Negative (Negative)
--- NOTE | 2020-09-21 21:19 | PC.NURSE ---
called report to MARION Dobbins
[2020-09-21 21:32] VITALS: BP 112/55; PULSE 88; RESP 16; O2SAT 94
--- NOTE | 2020-09-21 21:33 | PC.NURSE ---
while pt was receiving piperacillin pt experienced a rash, but no other symptoms. md notified. pt received solu medrol and benadryl
[2020-09-21 21:43] VITALS: BP 110/63; PULSE 95; RESP 18; TEMP 36.9; O2SAT 94
[2020-09-21] MEDS: sodium chloride 0.9% 1,000 ML 75 ML IV (22:47)
--- NOTE | 2020-09-21 22:59 | XR_ITS ---
WS: [id number] PORTABLE CHEST HISTORY: cough, evaluate for pneumonia COMPARISON: 08/13/2020 Lungs are clear and well expanded. No pleural effusion or pneumothorax. Cardiac size: Normal. Mediastinum/Aorta: Normal mediastinum. No osseous abnormality seen. XR/XR chest 1V portable [id number] IMPRESSION: Unremarkable portable chest.
--- NOTE | 2020-09-21 23:00 | ECG_ITS ---
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
[2020-09-21 23:48] LABS: Troponin(5th) Baseline 9 ng/L (0-10)
[2020-09-21 23:53] LABS: D Dimer 1.24 ug/mIFEU (0-0.59)
[2020-09-22] VITALS (13 sets, daily range): BP systolic 93–110; BP diastolic 59–73; PULSE 72–113; RESP 16–18; TEMP 36.4–37.1; O2SAT 92–98
--- NOTE | 2020-09-22 01:00 | ECG_ITS ---
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
[2020-09-22 01:54] LABS: Troponin 5 2HR 8.16 ng/L (0-10)
[2020-09-22 02:05] LABS: Troponin 5 2HR Delta -0.84 ABS# (0-10)
--- NOTE | 2020-09-22 05:00 | ECG_ITS ---
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
[2020-09-22 05:30] LABS: Basophils % 0.2 %; Hematocrit 43.2 % (37.0-47.0); Hemoglobin 14.1 g/dL (11.5-15.3); Lymphocytes # 0.3 10^3/uL (0.8-4.8); Lymphocytes % 2.6 %; Mean Corpuscular HGB Conc 32.6 g/dL (30.0-36.0); Mean Corpuscular Hemoglobin 31.1 pg (28.0-34.0); Mean Corpuscular Volume 95.4 fL (81-99); Monocytes # 0.2 10^3/uL (0.2-0.9); Monocytes % 1.5 %; Neutrophils # 10.46 10^3/uL (1.8-7.7); Neutrophils % 95.2 %; Nucleated Red Blood Cells % 0 %; Platelet Count 261 10^3/cmm (130-400); Red Blood Count 4.53 10^6/uL (4.1-5.3)
[2020-09-22 05:58] LABS: Alanine Aminotransferase 449 U/L (0-33); Albumin Level 3.8 g/dL (3.5-5.2); Alkaline Phosphatase 124 IU/L (35-105); Anion Gap 14.2 (5-19); Aspartate Amino Transferase 328 U/L (0-32); Blood Urea Nitrogen 18 mg/dL (6-20); Calcium 8.7 mg/dL (8.5-10.5); Carbon Dioxide 23 mmol/L (22-29); Chloride 104 mmol/L (98-107); Globulin 2.2 g/dL (1.3-4.6); Glomerular Filtration Rate 46.1 mL/min (90-130); Glucose 197 mg/dL (65-115); Osmolality Calculated 289 mOsm/kg (285-295); Potassium 5.2 mmol/L (3.5-5.1); Sodium 136 mmol/L (136-145); Total Bilirubin 0.6 mg/dL (0.15-1.2)
[2020-09-22] MEDS: cefTRIAXone 1,000 MG in sodium chloride 0.9% (plus) 50 ML 100 MG IV (06:34)
[2020-09-22] MEDS: lisinopril 10 mg Tablet PO (08:01)
[2020-09-22] MEDS: metroNIDAZOLE 500 MG Tablet PO ×2 (08:02→15:58)
[2020-09-22] MEDS: budesonide 0.5 mg/2 mL Neb 0.25 MG INHALATION (08:02)
[2020-09-22] MEDS: pantoprazole DR 40 mg Tablet PO (08:02)
[2020-09-22] MEDS: fexofenadine 60 mg Tablet 180 MG PO (11:23)
[2020-09-22] MEDS: guaiFENesin 600 mg Tablet PO (11:23)
[2020-09-22] MEDS: ipratropium-albuterol 3 mL Neb INHALATION ×2 (11:43→15:14)
[2020-09-22] MEDS: sodium chloride 0.9% 1,000 ML 75 ML IV (13:20)
[2020-09-22] MEDS: diphenhydrAMINE 50 mg/mL SDV 1mL IVP (16:29)
--- NOTE | 2020-09-22 16:55 | P.DS_ITS ---
Discharge Providers Date of Admission: 09/21/20 20:50 Date of Discharge: September 22, 2020 Attending Provider at Admission: Grecia Heart MD Attending Provider at Discharge: Carmella Tomas MD Primary Care Provider: Frank May DO Diagnoses at Discharge Discharge Diagnosis (1) Acute diverticulitis: Status: Acute (2) Transaminitis: Status: Acute (3) Adverse reaction to antibiotic: Status: Acute Reason for Visit Reason for Visit: lower abd pain Hospital Course Hospital Course Mrs. Colon was admitted for lower abdominal pain and fever. Evaluation in the emergency room revealed findings suggestive of mild acute diverticulitis versus epiploic appendagitis plus a mesenteritis. Covid rapid antigen was negative. Patient had an elevated white count. She not been able to tolerate much oral intake due to the pain. She had seen her primary care provider who had started her on antibiotics with Cipro and Flagyl. In the emergency room she received Zosyn and had a rash develop within a short timeframe of this being started. She was itching all over but had no respiratory symptoms. She was admitted to the floor and started on Rocephin and Flagyl. A couple of hours after receiving the dose of Rocephin she again developed a rash and itching. Penicillin and cephalosporins were listed as an allergy. I think what she probably benefited the most from was some IV fluids. She was put on a clear liquid diet and tolerated this. It was advanced to full liquid with continued tolerance and by the afternoon after admission she felt like she was doing well enough to go home with slow increase of diet consistency. She did have elevated transaminases with AST and ALT at 180 and 162 respectively. Both values were increased to 328 and 449 the following morning. Total bilirubin and alkaline phosphatase were unremarkable. She does not have a gallbladder. After discussion with Mrs. Colon she will be discharged home with plan to repeat laboratory studies on Friday. Discussed with her symptoms worsen through the weekend she should come back in for repeat evaluation. I did offer to keep her in the hospital to evaluate further. She has had similar but not this severe episodes previously by her description. Prescriptions for outpatient labs were provided. Physical Exam Narrative: EXAM NARRATIVE: No acute distress, regular rhythm, lungs clear, abdomen soft, nontender, tolerating oral intake Discharge Data Data Completed and Pending: Completed Studies During Hospitalization Category Date Time Status CT abdomen pelvis w con* [id number] Urge nt Cat Scan 09/21/20 17:02 Completed XR chest 1V jayden ble [id number] Routine Exams 09/21/20 22:59 Completed Laboratory Last Values WBC 11.0 10^3/uL (4.0 -10.0) H 09/22/20 04:55 RBC 4.53 10^6/uL (4.1 -5.3) 09/22/20 04:55 Hgb 14.1 g/dL (11.5-1 5.3) 09/22/20 04:55 Hct 43.2 % (37.0-47.0 ) 09/22/20 04:55 MCV 95.4 fL (81-99) 09/22/20 04:55 MCH 31.1 pg (28.0-34. 0) 09/22/20 04:55 MCHC 32.6 g/dL (30.0-3 6.0) 09/22/20 04:55 RDW 13.0 % (12.1-15.1 ) 09/22/20 04:55 Plt Count 261 10^3/cmm (130 -400) 09/22/20 04:55 MPV 10.0 fL (7.4-10.4 ) 09/22/20 04:55 Neut % (Auto) 95.2 % 09/22/20 04:55 Lymph % (Auto) 2.6 % 09/22/20 04:55 Caldwell % (Auto) 1.5 % 09/22/20 04:55 Eos % (Auto) 0.0 % 09/22/20 04:55 Baso % (Auto) 0.2 % 09/22/20 04:55 Neut # (Auto) 10.46 10^3/uL (1. 8-7.7) H 09/22/20 04:55 Lymph # (Auto) 0.3 10^3/uL (0.8- 4.8) L 09/22/20 04:55 Caldwell # (Auto) 0.2 10^3/uL (0.2- 0.9) 09/22/20 04:55 Eos # (Auto) 0.0 10^3/uL (0.0- 0.8) 09/22/20 04:55 Baso # (Auto) 0.0 10^3/uL (0.0- 0.1) 09/22/20 04:55 Nucleated RBC % (a uto) 0 % 09/22/20 04:55 Nucleated RBCs # 0.0 /100WBC 09/22/20 04:55 D-Dimer 1.24 ug/mIFEU (0- 0.59) H 09/21/20 23:19 Sodium 136 mmol/L (136-1 45) 09/22/20 04:55 Potassium 5.2 mmol/L (3.5-5 .1) H 09/22/20 04:55 Chloride 104 mmol/L (98-10 7) 09/22/20 04:55 Carbon Dioxide 23 mmol/L (22-29) 09/22/20 04:55 Anion Gap 14.2 (5-19) 09/22/20 04:55 BUN 18 mg/dL (6-20) 09/22/20 04:55 Creatinine 1.2 mg/dL (0.5-0. 9) H 09/22/20 04:55 GFR Calculation 46.1 mL/min (90-1 30) L 09/22/20 04:55 Glucose 197 mg/dL (65-115 ) H 09/22/20 04:55 Calculated Osmolal ity 289 mOsm/kg (285- 295) 09/22/20 04:55 Lactate 0.8 mmol/L (0.5-2 .2) 09/21/20 17:38 Calcium 8.7 mg/dL (8.5-10 .5) 09/22/20 04:55 Total Bilirubin 0.6 mg/dL (0.15-1 .2) 09/22/20 04:55 AST 328 U/L (0-32) H 09/22/20 04:55 ALT 449 U/L (0-33) H 09/22/20 04:55 Alkaline Phosphata se 124 IU/L (35-105) H 09/22/20 04:55 Creatine Kinase 235 U/L (26-192) H 09/21/20 17:17 Troponin T Baselin e 9 ng/L (0-10) 09/21/20 23:19 Troponin T 120 Min [place] 8.16 ng/L (0-10) 09/22/20 01:08 Delta Troponin T -0.84 ABS# (0-10) L 09/22/20 01:08 Troponin T Hi Sens 6Hr 6.00 ng/L (0-10) 09/22/20 04:55 Troponin T Hi Sens 6Hr Delta -3.00 ng/L (0-12) L 09/22/20 04:55 C-Reactive Protein 67.1 mg/L (0.0-4. 9) H 09/21/20 17:17 Total Protein 6.0 g/dL (6.6-8.7 ) L 09/22/20 04:55 Albumin 3.8 g/dL (3.5-5.2 ) 09/22/20 04:55 Globulin 2.2 g/dL (1.3-4.6 ) 09/22/20 04:55 Lipase 17 U/L (13-60) 09/21/20 17:17 Urine Color Yellow (Yellow) 09/21/20 17:36 Urine Appearance Clear (CLEAR) 09/21/20 17:36 Urine pH 5 (5-7) 09/21/20 17:36 Ur Specific Gravit y 1.010 (1.005-1.0 30) 09/21/20 17:36 Urine Protein Neg (Negative) 09/21/20 17:36 Urine Glucose (UA) Norm (Normal) 09/21/20 17:36 Urine Ketones 1+ (Negative) H 09/21/20 17:36 Urine Blood Neg (Negative) 09/21/20 17:36 Urine Nitrate Negative (Negati ve) 09/21/20 17:36 Urine Bilirubin Neg (Negative) 09/21/20 17:36 Urine Urobilinogen Norm mg/dL (Negat shania) 09/21/20 17:36 Ur Leukocyte Urvashi ase 1+ (Negative) H 09/21/20 17:36 Urine RBC 0-4 /hpf (0-2) H 09/21/20 17:36 Urine WBC 10-15 /hpf (0-5) H 09/21/20 17:36 Ur Squamous Epith Cells 15-25 /hpf (0-5) H 09/21/20 17:36 Amorphous Sediment Not Reportable 09/21/20 17:36 Urine Bacteria 1+ /hpf (NONE) H 09/21/20 17:36 Urine Mucus 3+ /hpf 09/21/20 17:36 Influenza Type A A g Negative (Negati ve) 09/21/20 20:00 Influenza Type B A g Negative (Negati ve) 09/21/20 20:00 SARS-CoV-2 Ag (Rap id) Negative (Negati ve) 09/21/20 20:00 Vitals: Last Vital Signs Temp 98.7 F 09/22/20 15:23 Pulse 113 H 09/22/20 15:23 Resp 18 09/22/20 15:23 BP 110/63 09/22/20 15:23 Pulse Ox 98 09/22/20 15:23 Discharge Plan Discharge Patient Disposition: Home Condition: Stable Prescriptions: New Colace 100 mg capsule 100 mg PO BID Qty: 60 RF: 0 Benadryl Allergy 25 mg tablet 50 mg PO Q8H PRN (Reason: allergic reaction) Qty: 60 RF: 0 prednisone 50 mg tablet 50 mg PO DAILY Qty: 5 RF: 0 Continued albuterol sulfate 90 mcg/actuation aerosol powdr breath activated 2 inh INHALATION Q4H PRN (Reason: Shortness Of Breath) RF: 0 fluticasone propionate [Flonase Allergy Relief] 50 mcg/actuation sp ray,suspension 1 spray INTRANASAL BID RF: 0 Mucinex DM 30-600 mg tablet extended release 12 hr 1 tab PO DAILY PRN (Reason: Congestion) RF: 0 omeprazole 40 mg capsule,delayed release(DR/EC) 40 mg PO BID RF: 0 lisinopril 10 mg tablet 10 mg PO DAILY RF: 0 ipratropium-albuterol 0.5 mg-3 mg(2.5 mg base)/3 mL solution for nebulization 3 ml INHALATION Q4H PRN (Reason: Shortness Of Breath Or Wheezing) RF: 0 Spiriva Respimat 2.5 mcg/actuation mist 2 puff INHALATION QAM 90 Days Qty: 4 RF: 3 levocetirizine 5 mg tablet 5 mg PO DAILY RF: 0 fluticasone propion-salmeterol [Advair Diskus] 250-50 mcg/dose blister with device 1 inh INHALATION Q12H 30 Days Qty: 60 RF: 3 Fasenra Pen 30 mg/mL auto-injector 30 mg SUBCUT Q28D Qty: 1 RF: 3 azelastine 137 mcg (0.1 %) aerosol,spray See Rx Instructions .ROUTE .COMPLEX Qty: 30 RF: 3 metronidazole 500 mg tablet 500 mg PO TID RF: 0 fexofenadine 180 mg Tablet 180 mg PO DAILY RF: 0 ciprofloxacin HCl 500 mg tablet 500 mg PO BID RF: 0 Discharge Orders: Discharge Order (Routine); Ordered 09/22/20 Ordered By: Carmella Tomas Other Ambulatory Orders: Comprehensive Metabolic Panel (Routine) Timeframe: 20200925 Facility: [facility] - Location: Lab - Main Lab Ordered By: Carmella Tomas Referrals: Frank May, [Primary Care Provider] - 4-7 days (Please call [facility] on Friday to schedule an appointment to be seen by Dr. May within 4-7 days.) Discharge Diet: Advance as tolerated and Full LIquid Discharge Activity: Increase activity as tolerated Patient Instructions: Prednisone (By mouth), Diphenhydramine (By mouth), Laxative, Stool Softeners (By mouth), Diverticulitis (DC) Activity Restrictions/Additional Instructions: Take cipro and flagyl as previously prescribed. Keep stools soft. Stool softner added. Zosyn and Ceftriaxone have been listed as allergies in our medical record due to the rash. Prednisone 50 mg x 5 days written if needed. Should you have another episode of the rash recurring, start and take prednisone as directed. Monitor for any trouble breathing, dizziness, acute GI symptoms, change in mental status, or other concerning symptoms. You may take benadryl again if needed. You liver enzymes were elevated (transaminitis). Please get repeat blood work next week for recheck. See Dr may in follow up as well and be sure to have your clinic records with all doctors updated to reflect probable allergic reaction to zosyn and rocephin with rash and itching. 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
--- NOTE | 2020-09-22 17:56 | PC.NURSE ---
pt iv taken out and intact. pt discharge instructions explained and questions answered. pt taken to surgical services entrance.
== END 2020-09-22 17:56 | disposition home or self-care (01) ==
LOC: ER 21:14 → MEDSURG 21:17
PROVIDERS: Admitting Provider Student in an Organized Health Care Education/Training Program; Emergency Provider Family Medicine; PCP Internal Medicine; Visit Provider Hospitalist
DX: K57.92 Diverticulitis of intestine, part unspecified, without perforation or abscess without bleeding (principal); R74.01 Elevation of levels of liver transaminase levels; T36.95XA Adverse effect of unspecified systemic antibiotic, initial encounter; J45.909 Unspecified asthma, uncomplicated; M79.7 Fibromyalgia; I10 Essential (primary) hypertension; Z87.891 Personal history of nicotine dependence
CPT/HCPCS: 12345; 36415; 71045; 74177; 80053; 81001; 82550; 83605; 83690; 84484; 85025; 85378; 86140; 87426; 87493; 87506; 87804; 93005; 94640; 96361; 96365; 96375; 99283; 99285; G0378; J0696; J1200; J2405; J2543; J2930; J7030; J7611; J7626; Q9967

== ENCOUNTER 2020-09-27 12:44 | Outpatient (CLI) | payer MEDICARE, SELFPAY ==
--- NOTE | 2020-09-27 12:55 | MR_ITS ---
WS: [id number] MRI LUMBAR SPINE NONCONTRAST HISTORY: LUMBAR BACK PAIN, RADICULOPATHY AFFECTING LLE COMPARISON: No similar studies. TECHNIQUE: Sagittal and axial multisequence imaging is submitted. Mild disc bulging and spondylitic changes in the cervical spine with slight encroachment into the cer vical canal at C3-4 and C4-5. L5 anterolisthesis by 16 mm. Severe disc space narrowing at the L5-S1 level. Bilateral pars defects a t L5. The remaining lumbar vertebral bodies are normally aligned. No fracture or marrow edema. Conus terminates normally at L1-2 disc level. L1-L2: Normal. L2-L3: Small amount of fluid in the facet joints without stenosis. L3-L4: Very mild annular disc bulge with a central disc protrusion with fissure. Bilateral facet join t arthritis with a small amount of fluid. No significant stenosis. L4-L5: Mild annular disc bulging and facet and ligamentum flavum arthritis. No significant stenosis. L5-S1: Grade 2 anterolisthesis of L5 with unroofing of the disc. Thecal sac is being deformed by the anterolisthesis. Marked bilateral facet joint arthritis. There is mild encroachment into the thecal s ac due to facet joint disease. Moderate to severe bilateral foraminal stenosis. Paravertebral soft tissues are negative. MR/MR lumbar spine wo con* [id number] IMPRESSION: 1. Grade 2 spondylolisthesis of L5 due to L5 spondylolysis. 2. Moderate to severe bilateral foraminal stenosis at L5-S1. 3. No additional significant stenosis.
== END 2020-09-27 12:45 | disposition home or self-care (01) ==
LOC: RADWPI 12:50
PROVIDERS: PCP Internal Medicine; Visit Provider Internal Medicine
DX: M54.16 Radiculopathy, lumbar region (principal); M43.16 Spondylolisthesis, lumbar region; M48.07 Spinal stenosis, lumbosacral region
CPT/HCPCS: 72148

== ENCOUNTER 2021-01-02 13:08 | Outpatient (CLI) | payer MEDICARE, SELFPAY ==
--- NOTE | 2021-01-02 13:15 | XRR_ITS ---
PROCEDURE INFORMATION: Exam: XR Chest Exam date and time: 01/02/2021 1:17 PM Age: 60 years old Clinical indication: Cough and shortness of breath TECHNIQUE: Imaging protocol: XR of the chest Views: 2 views. COMPARISON: CR XR chest 1V portable [id number] 09/21/2020 11:29 PM FINDINGS: Lungs: Unremarkable. No consolidation. Pleural spaces: Unremarkable. No pleural effusion. No pneumothorax. Heart/Mediastinum: Unremarkable. No cardiomegaly. Bones/joints: Unremarkable. XR/XR chest 2V* [id number] IMPRESSION: No acute findings.
== END 2021-01-02 13:09 | disposition home or self-care (01) ==
LOC: RAD 13:11
PROVIDERS: PCP Internal Medicine; Visit Provider Internal Medicine Critical Care Medicine
DX: R06.02 Shortness of breath (principal)
CPT/HCPCS: 71046

== ENCOUNTER → 2021-08-06 10:20 | Outpatient (BNVA) | payer MEDICARE, SELFPAY | PROVIDERS: PCP Internal Medicine; Referring Provider Internal Medicine; Visit Provider Podiatrist Foot & Ankle Surgery | DX: M19.071 Primary osteoarthritis, right ankle and foot (principal); M79.671 Pain in right foot | CPT/HCPCS: 73630 ==

== ENCOUNTER 2021-08-06 11:14 | Outpatient (CLI) | payer MEDICARE, SELFPAY | END 2021-08-06 11:15 | disposition home or self-care (01) | LOC: SPT 11:44 | PROVIDERS: PCP Internal Medicine; Visit Provider Podiatrist Foot & Ankle Surgery | DX: Z46.89 Encounter for fitting and adjustment of other specified devices (principal); M72.2 Plantar fascial fibromatosis | CPT/HCPCS: 97760; L4397 ==

== ENCOUNTER 2022-01-02 07:14 | Outpatient (CLI) | payer MEDICARE, SELFPAY ==
--- NOTE | 2022-01-02 08:40 | USCV_ITS ---
Heather Colon Age: 61 Gender: F : 1960 Exam Date: 01/02/2022 08:52 Ordering Phys: Varun Diaz M.D ([email or web address]) Technologist: Navjot Turcios Exam Location: [facility] Indication: Cardiac arrythmia BP: 140 / 70 HR: 74 Rhythm: Sinus Technical Quality: Adequate MEASUREMENTS (Male / Female) Normal Values 2D ECHO LV Diastolic Diameter PLAX 2.5 cm 4.2 - 5.9 / 3.9 - 5.3 cm LV Systolic Diameter PLAX 1.7 cm IVS Diastolic Thickness 1.1 cm 0.6 - 1.0 / 0.6 - 0.9 cm IVS Systolic Thickness 1.5 cm LVPW Diastolic Thickness 2.3 cm 0.6 - 1.0 / 0.6 - 0.9 cm LVPW Systolic Thickness 2.3 cm LVOT Diameter 2.0 cm LV Ejection Fraction 2D Teich 61.4 % LV Ejection Fraction MOD 2C 62.0 % LV Ejection Fraction 2C AL 61.3 % LA Diameter 3.5 cm LA Width 2.8 cm LA Height 4.6 cm RA Width 2.9 cm RA Height 3.4 cm Aorta at Sinotubular Diameter 2.6 cm M-MODE Aortic Annulus Diameter 3.4 cm LA Ao Ratio MM 1.2 MV E Point Septal Separation 0.5 cm DOPPLER AV Peak Velocity 124.0 cm/s LVOT Peak Velocity 123.0 cm/s AV Area Cont Eq vti 3.3 cm squared AV Area Cont Eq pk 3.1 cm squared MV Area PHT 3.2 cm squared Mitral E to A Ratio 0.8 MV E' Velocity 45.8 cm/s Mitral E to MV E' Ratio 11.2 Mitral E to LV E' Lateral Ratio 11.2 Mitral E to LV E' Septal Ratio 11.4 TR Peak Velocity 173.4 cm/s TR Peak Gradient 12.0 mmHg TR Mean Velocity 89.0 cm/s TR Mean Gradient 3.8 mmHg TR Velocity Time Integral 26.3 cm TV Peak E Velocity 52.0 cm/s Right Atrial Pressure 3.0 mmHg Pulmonary Artery Systolic Pressu 15.0 mmHg PV Peak Velocity 82.0 cm/s FINDINGS Left Ventricle Normal left ventricular size, systolic function and wall thickness, with no regional wall motion abnormalities. Left ventricular ejection fraction is estimated at 60 %. Normal diastolic function. Right Ventricle Normal right ventricular size and systolic function. Right ventricular systolic pressure 15 mmHg. Right Atrium Normal right atrial size. Left Atrium Normal left atrial size. Mitral Valve Structurally normal mitral valve. No mitral valve stenosis. No mitral valve regurgitation. Aortic Valve Structurally normal trileaflet aortic valve. No aortic valve stenosis. No aortic valve regurgitation. Tricuspid Valve Structurally normal tricuspid valve. No tricuspid valve stenosis. Trace tricuspid valve regurgitation. Pulmonic Valve Structurally normal pulmonic valve. No pulmonary valve stenosis. Trace pulmonary valve regurgitation. Pericardium No pericardial effusion. Aorta Normal size aortic root and proximal ascending aorta. CONCLUSIONS 1. Normal left ventricular size, systolic function and wall thickness, with no regional wall motion abnormalities. Left ventricular ejection fraction is estimated at 60 %. Normal diastolic function. 2. Normal right ventricular size and systolic function. 3. Normal pulmonary artery pressure. 4. Trace tricuspid valve regurgitation. 5. No prior similar studies to compare. Jeni Dimas MD (Electronically Signed) Final Date: 07 January 2022 09:43 S
== END 2022-01-02 07:15 | disposition home or self-care (01) ==
LOC: RAD 07:15
PROVIDERS: PCP Internal Medicine; Visit Provider Internal Medicine
DX: I49.9 Cardiac arrhythmia, unspecified (principal); I07.1 Rheumatic tricuspid insufficiency
CPT/HCPCS: 93306

== ENCOUNTER → 2022-01-08 13:53 | Outpatient (BNVA) | payer MEDICARE, SELFPAY | PROVIDERS: PCP Internal Medicine; Visit Provider Internal Medicine Critical Care Medicine | DX: J45.50 Severe persistent asthma, uncomplicated (principal); J30.9 Allergic rhinitis, unspecified; Z87.891 Personal history of nicotine dependence; I10 Essential (primary) hypertension | CPT/HCPCS: 99214 ==

== ENCOUNTER → 2022-07-05 09:11 | Outpatient (BNVA) | payer MEDICARE, SELFPAY | PROVIDERS: PCP Internal Medicine; Visit Provider Internal Medicine Critical Care Medicine | DX: J45.50 Severe persistent asthma, uncomplicated (principal); J30.9 Allergic rhinitis, unspecified; J82.83 Eosinophilic asthma | CPT/HCPCS: 99214 ==

== ENCOUNTER → 2022-10-17 08:12 | Outpatient (BNVA) | payer MEDICARE, SELFPAY | PROVIDERS: PCP Internal Medicine; Visit Provider Internal Medicine Pulmonary Disease | DX: J18.9 Pneumonia, unspecified organism (principal); J30.9 Allergic rhinitis, unspecified; J45.50 Severe persistent asthma, uncomplicated; Z77.29 Contact with and (suspected) exposure to other hazardous substances; Z87.891 Personal history of nicotine dependence | CPT/HCPCS: 36415; 82784; 99214 ==

== ENCOUNTER 2023-01-24 10:47 | Outpatient (CLI) | payer MEDICARE, SELFPAY ==
--- NOTE | 2023-01-24 10:56 | MM_ITS ---
WS: [id number] BILATERAL SCREENING DIGITAL TOMOSYNTHESIS MAMMOGRAM WITH CAD HISTORY: SCREENING COMPARISON: 07/21/2018 and 07/18/2016 Bilateral CC and MLO views with tomosynthesis and synthetic mammography submitted. Computer aided det ection analyzed. Breast composition: There are scattered areas of fibroglandular density. No suspicious masses, microc alcifications or architectural distortion. Scattered asymmetries and calcifications are stable. Biops y clip is noted LEFT breast at the 3:00 axis. MM/[place] [id number] IMPRESSION: BI-RADS: 2-Benign FOLLOW UP: 1 Year Follow-up
== END 2023-01-24 10:48 | disposition home or self-care (01) ==
LOC: RAD 10:50
PROVIDERS: PCP Internal Medicine; Visit Provider Nurse Practitioner Women's Health
DX: Z12.31 Encounter for screening mammogram for malignant neoplasm of breast (principal)
CPT/HCPCS: 77063; 77067

== ENCOUNTER → 2023-01-31 10:46 | Outpatient (BNVA) | payer MEDICARE, SELFPAY | PROVIDERS: PCP Internal Medicine; Visit Provider Internal Medicine Pulmonary Disease | DX: J45.50 Severe persistent asthma, uncomplicated (principal); J30.9 Allergic rhinitis, unspecified; Z77.29 Contact with and (suspected) exposure to other hazardous substances; J82.83 Eosinophilic asthma; Z87.01 Personal history of pneumonia (recurrent); Z87.891 Personal history of nicotine dependence | CPT/HCPCS: 99214 ==

== ENCOUNTER 2023-03-06 12:58 | Outpatient (CLI) | payer MEDICARE, SELFPAY ==
--- NOTE | 2023-03-06 13:10 | MR_ITS ---
WS: [id number] MRI RIGHT SHOULDER HISTORY: R GLENOHUMERAL ARTHRITIS COMPARISON: None available. TECHNIQUE: Multiplanar sequences of the shoulder joint are submitted. Moderate AC joint arthritis. Distal clavicular osteophyte with mild encroachment upon the supraspinat us muscle. Very mild subacromial impingement. Very small amount of fluid in the subacromial bursa. Th ickening of the biceps tendon. There is a very shallow bicipital groove and the tendon remains normal ly positioned. Increase fluid within the biceps tendon sheath. There is a focal area of marked increa sed T2 signal in the extracapsular portion of the biceps tendon consistent with tendinopathy. No os a cromion. Severe loss of the normal cortex and cartilage surrounding the humeral head. Multiple small osteophyt es and cortical defects. Loss of cartilage. No significant rotator cuff muscle atrophy. There is marked tendinopathy with significant fraying edie ng the surfaces of the distal supraspinatus tendon. Tendon is actually being distorted and displaced by humeral head osteophytes. Severe glenohumeral joint arthritis. Joint space narrowing with remodeling of the glenoid. Subchondra l cystic changes and loss of the normal cartilage. Hypertrophic osteophytes encroaching into the infe rior glenohumeral joint. This large osteophyte is from the humeral head. Abnormal labrum. In particular the anterior superior labrum is abnormal. The remaining labrum is smal l caliber with abnormal signal also. MR/MR shoulder RT wo con* [id number] IMPRESSION: 1. Significant internal derangement involving the RIGHT shoulder joint. 2. Complete loss of glenohumeral joint space with remodeling of the glenoid, h ypertrophic osteophytes and subchondral cystic changes. 3. Loss of normal cartilage and cortical surface of the humeral head. 4. Mild tendinopathy supraspinatus tendon with marked fraying along the bursal and articular surfaces. 5. Loss of the normal glenoid labrum. 6. AC joint arthritis. 7. Biceps tendinopathy. There is significant increased T2 signal throughout th e extracapsular portion of the biceps tendon.
== END 2023-03-06 12:59 | disposition home or self-care (01) ==
LOC: RAD 13:02
PROVIDERS: PCP Internal Medicine; Visit Provider Orthopaedic Surgery
DX: M19.011 Primary osteoarthritis, right shoulder (principal); M24.9 Joint derangement, unspecified; M67.813 Other specified disorders of tendon, right shoulder
CPT/HCPCS: 73221

== ENCOUNTER → 2023-07-31 09:16 | Outpatient (BNVA) | payer MEDICARE, SELFPAY | PROVIDERS: PCP Internal Medicine; Visit Provider Internal Medicine Pulmonary Disease | DX: J45.50 Severe persistent asthma, uncomplicated (principal); J30.9 Allergic rhinitis, unspecified; Z77.29 Contact with and (suspected) exposure to other hazardous substances; J82.83 Eosinophilic asthma; Z87.01 Personal history of pneumonia (recurrent); Z87.891 Personal history of nicotine dependence | CPT/HCPCS: 99214 ==

== ENCOUNTER 2024-01-26 12:42 | Outpatient (CLI) | payer MEDICARE, SELFPAY ==
--- NOTE | 2024-01-26 13:00 | XR_ITS ---
WS: [id number] DEXA (DUAL ENERGY X-RAY ABSORPTIOMETRY) Bone mineral density was performed using a [employer]ai [employer] machine. HISTORY: Z78.0 - Asymptomatic menopausal state COMPARISON: None available. Lumbar spine BMD (L1-L4): 1.105 g/cm2 T score: -0.6 Z score: -0.2 Total hip BMD: Left: 0.935 g/cm2. T score: -0.6 Z score: -0.2 Right: 0.929 g/cm2. T score: -0.6 Z score: -0.3 10 year probability of a major osteoporotic fracture is 13.0%. IMPRESSION: NORMAL BONE MINERAL DENSITY based upon the WHO classification for females.
--- NOTE | 2024-01-26 13:30 | MM_ITS ---
WS: [id number] BILATERAL SCREENING DIGITAL TOMOSYNTHESIS MAMMOGRAM WITH CAD HISTORY: Z12.39 - Encounter for other screening for malignant neop... COMPARISON: 01/24/2023, 07/21/2018 and 07/13/2015 Bilateral CC and MLO views with tomosynthesis and synthetic mammography submitted. Computer aided det ection analyzed. Breast composition: There are scattered areas of fibroglandular density. No suspicious masses, microc alcifications or architectural distortion. Prior biopsy site upper outer quadrant of the LEFT breast. Continued asymmetric soft tissue at the biopsy site but stable since at least 2014. Benign calcifica tions. IMPRESSION: MM/[place] [id number] BI-RADS: 2-Benign FOLLOW UP: 1 Year Follow-up
== END 2024-01-26 12:43 | disposition home or self-care (01) ==
LOC: RAD 12:42
PROVIDERS: PCP Internal Medicine; Visit Provider Nurse Practitioner Women's Health
DX: Z12.31 Encounter for screening mammogram for malignant neoplasm of breast (principal); Z78.0 Asymptomatic menopausal state; Z13.820 Encounter for screening for osteoporosis
CPT/HCPCS: 77063; 77067; 77080

== ENCOUNTER → 2024-03-01 08:20 | Outpatient (BNVA) | payer MEDICARE, SELFPAY | PROVIDERS: PCP Internal Medicine; Visit Provider Internal Medicine Pulmonary Disease | DX: J45.50 Severe persistent asthma, uncomplicated (principal); J30.9 Allergic rhinitis, unspecified; Z77.29 Contact with and (suspected) exposure to other hazardous substances; J18.9 Pneumonia, unspecified organism; Z87.891 Personal history of nicotine dependence | CPT/HCPCS: 99214 ==

== ENCOUNTER 2024-04-01 01:29 | Emergency (ER) | payer MEDICARE, SELFPAY ==
[2024-04-01 01:43] VITALS: BP 158/89; PULSE 74; RESP 18; TEMP 36.6; O2SAT 100; BMI 30.8
--- NOTE | 2024-04-01 01:48 | CTR_ITS ---
PROCEDURE INFORMATION: Exam: CT Head Without Contrast Exam date and time: 04/01/2024 2:40 AM Age: 63 years old Clinical indication: Pain; Headache; Additional info: Headache, hypertension TECHNIQUE: Imaging protocol: Computed tomography of the head without contrast. Radiation optimization: All CT scans at this facility use at least one of these dose optimization techniques: automated exposure control; mA and/or kV adjustment per patient size (includes targeted exams where dose is matched to clinical indication); or iterative reconstruction. COMPARISON: CT head wo con* [id number] 05/02/2019 4:53 PM RADIATION DOSE METRICS: Total DLP (mGy-cm): 858.8 FINDINGS: Brain: Scattered dural calcifications. Pineal gland calcifications. Cerebral ventricles: Choroid plexus calcifications. Pituitary gland and sella: Partially empty sella, likely of little clinical consequence given isolated finding. Paranasal sinuses: Visualized sinuses are unremarkable. No fluid levels. Mastoid air cells: Visualized mastoid air cells are well aerated. Bones: Unremarkable. No acute fracture. Soft tissues: Unremarkable. Other findings: Intracranial atherosclerotic disease. CT/CT head wo con* [id number] IMPRESSION: No acute intracranial findings.
--- NOTE | 2024-04-01 01:48 | XRR_ITS ---
PROCEDURE INFORMATION: Exam: XR Chest Exam date and time: 04/01/2024 2:08 AM Age: 63 years old Clinical indication: Shortness of breath; Additional info: Hypertension, shortness of breath TECHNIQUE: Imaging protocol: Radiologic exam of the chest. Views: 1 view. COMPARISON: CR XR chest 2V* [id number] 01/02/2021 1:25 PM FINDINGS: Lungs: Unremarkable. No consolidation. Pleural spaces: Unremarkable. No pleural effusion. No pneumothorax. Heart/Mediastinum: Unremarkable. No cardiomegaly. Bones/joints: Postprocedural changes of the right glenohumeral joint. Well calcified entity appreciated over the lateral left humeral head which suggest possible calcific tendinosis/tendinitis. Stable right axillary fold ossific density. Diffuse degenerative change of the visualized osseous structures. XR/XR chest 1V portable [id number] IMPRESSION: No acute cardiopulmonary findings.
--- NOTE | 2024-04-01 01:50 | ECG_ITS ---
[facility] Test Date: 2024-04-01 Pat Name: Heather Colon Department: Room: Gender: Female Instrumentation Specialist: : 1960 Requested By: Carla Nagel Order Number: [id number] Gannon MD: Varun Diaz M.D. Measurements Intervals [place] Rate: 70 P: 27 KS: 171 QRS: 46 QRSD: 91 T: 38 QT: 391 QTc: 424 Interpretive Statements SINUS RHYTHM POSSIBLE ANTERIOR MYOCARDIAL INFARCTION , PROBABLY OLD [30 ms Q WAVE IN V3/V4, OR R < 0.2 mV IN V4] Compared to ECG 09/22/2020 06:21:15 Myocardial infarct finding now present Electronically Signed On 04-01-2024 12:21:25 CDT by Varun Diaz M.D. [id number]
--- NOTE | 2024-04-01 01:55 | ED_ITS ---
HPI - Headache 2 General: Chief Complaint: Headache Stated Complaint: Left arm pain,Headace Time Seen by Provider: 04/01/24 01:40 History of Present Illness: 63-year-old female with a history of ast hma, hypertension and fibromyalgia who presents to the emergency room with a headache. She says she has not been feeling well for couple of weeks at least now. However tonight she woke up with a severe headache. She had some numbness in her left arm. Some chest discomfort. She checked her blood pressure and it was 160/90 which is high for her. No focal motor deficits. No altered mental status. No nausea or vomiting. No fevers. Review of Systems 2 Narrative: Constitutional symptoms: Negative except as documented in HPI. Skin symptoms: Negative except as documented in HPI. Eye symptoms: Negative except as documented in HPI. ENMT symptoms: Negative except as documented in HPI. Respiratory symptoms: Negative except as documented in HPI. Cardiovascular symptoms: Negative except as documented in HPI. Gastrointestinal symptoms: Negative except as documented in HPI. Genitourinary symptoms: Negative except as documented in HPI. Musculoskeletal symptoms: Negative except as documented in HPI. Neurologic symptoms: Negative except as documented in HPI. Psychiatric symptoms: Negative except as documented in HPI. Endocrine symptoms: Negative except as documented in HPI. 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 [facility] [place]. Dr. Richardson. Indication: Uterine prolapse, irregular vaginal bleeding, stress urinary incontinence, cystocele, rectocele. H/O shoulder surgery History of cholecystectomy History of bladder surgery Family History Sister Lung disease Asthma Mother Diabetes Denies family history of Colon cancer Ovarian cancer Heart disease Hypercholesteremia Breast cancer Hypertension Uterine cancer Thyroid disease Stroke Social History Smoking and tobacco/nicotine status: former use of tobacco/nicotine Physical Exam 2 Narrative: EXAM NARRATIVE: General: Alert, no acute distress. Skin: Warm, dry. Head: Normocephalic, atraumatic. Neck: Supple, trachea midline. Eye: Extraocular movements are intact. Ears, nose, mouth and throat: mucosa moist. Cardiovascular: Regular, Normal peripheral perfusion. Respiratory: Lungs are clear to auscultation, respirations are non-labored, breath sounds are equal, Symmetrical chest wall expansion. Gastrointestinal: Soft, Nontender, Non distended, Normal bowel sounds. Musculoskeletal: Normal ROM, no deformity. Neurological: Alert and oriented, No focal neurological deficit observed. Psychiatric: Cooperative, appropriate mood & affect. Course 2 Vital Signs: Vital signs: Vital Signs Temperature 97.9 F 04/01/24 01:43 Pulse Rate 71 04/01/24 02:30 Respiratory Rate 19 H 04/01/24 02:30 Blood Pressure 136/71 04/01/24 02:30 Pulse Oximetry 96 04/01/24 02:30 Oxygen Delivery Me thod Room Air 04/01/24 02:23 MDM - Headache Medical Decision Making Medical decision making: Differential diagnosis including but not limited to and based on the above HPI, review of systems and physical exam: Patient presents with hypertension: Essential hypertension. Stroke. acute coronary syndrome. kidney failure. congestive heart failure. anxiety Orders placed to evaluate differential diagnosis based on the above differential, HPI and physical exam these include an EKG to evaluate for any ischemic changes, chest x-ray to evaluate for cardiomegaly, and basic lab work including a troponin and a BMP look at renal function. EKG: Time 1:50 AM rate 70. Normal sinus rhythm, No ST-T changes, no ectopy, normal IL & QRS intervals, This was reviewed and interpreted by myself the ER physician at 1:55 AM Lab Review: Laboratory results were reviewed and interpreted by myself the emergency room physician. Lab work is unremarkable. No leukocytosis. BUN and creatinine are 21 and 1.0. Glucose is 117. No urinary tract infection. Troponin is negative. CT head: No acute intracranial process. no intracranial hemorrhage, no evidence of infarct. no evidence of acute fracture.This was reviewed and interpreted by myself the ER physician. Chest x-ray: No acute process. No infiltrate. No pneumothorax. No cardiomegaly. This was reviewed and interpreted by myself the ER physician. I reviewed the patient's medical record. Reexamination: Patient remained stable. No altered mental status. No increased work of breathing. She says she feels better. We discussed this may just be a viral illness. Assessment and plan: Headache Hypertension - Discharged home - Discussed findings and plan with patient. Answered any questions. - All laboratory values were reviewed and interpreted personally by myself, the ER physician - All imaging was reviewed and interpreted personally by myself, the ER physician. - Evaluation and treatment of this problem were appropriate in the emergency setting Lab Data 04/01/24 02:04 04/01/24 02:04 Laboratory Results WBC 8.60 10^3/uL (3.29-11.43) 04/01/24 02:04 RBC 4.37 10^6/uL (3.85-5.65) 04/01/24 02:04 Hgb 13.80 g/dL (11.27-16.99) 04/01/24 02:04 Hct 42.2 % (36-47) 04/01/24 02:04 MCV 96.6 fl (85-98) 04/01/24 02:04 MCH 31.6 pg (27-33) 04/01/24 02:04 MCHC 32.7 g/dL (30-55) 04/01/24 02:04 RDW 13.2 % (12.1-15.1) 04/01/24 02:04 Plt Count 280 10^3/cmm (157-399) 04/01/24 02:04 MPV 9.6 fL (7.4-10.4) 04/01/24 02:04 Neut % (Auto) 51.6 % 04/01/24 02:04 Lymph % (Auto) 38.5 % 04/01/24 02:04 Haakon % (Auto) 9.4 % 04/01/24 02:04 Eos % (Auto) 0.0 % 04/01/24 02:04 Baso % (Auto) 0.2 % 04/01/24 02:04 Neut # (Auto) 4.43 10^3/uL (1.8-7.7) 04/01/24 02:04 Lymph # (Auto) 3.3 10^3/uL (0.8-4.8) 04/01/24 02:04 Haakon # (Auto) 0.8 10^3/uL (0.2-0.9) 04/01/24 02:04 Eos # (Auto) 0.0 10^3/uL (0.0-0.8) 04/01/24 02:04 Baso # (Auto) 0.0 10^3/uL (0.0-0.1) 04/01/24 02:04 Nucleated RBC % (auto) 0 % 04/01/24 02:04 Nucleated RBCs # 0.0 /100WBC 04/01/24 02:04 Sodium 143 mmol/L (136-145) 04/01/24 02:04 Potassium 3.6 mmol/L (3.5-5.1) 04/01/24 02:04 Chloride 108 mmol/L (98-107) H 04/01/24 02:04 Carbon Dioxide 23 mmol/L (22-29) 04/01/24 02:04 Anion Gap 15.6 (5-19) 04/01/24 02:04 BUN 21 mg/dL (8-23) 04/01/24 02:04 Creatinine 1.0 mg/dL (0.5-0.9) H 04/01/24 02:04 GFR Calculation 56.4 mL/min (90-130) L 04/01/24 02:04 Glucose 117 mg/dL (65-115) H 04/01/24 02:04 Calculated Osmolality 300 mOsm/kg (285-295) H 04/01/24 02:04 Lactic Acid 1.3 mmol/L (0.5-2.2) 04/01/24 02:04 Calcium 9.0 mg/dL (8.5-10.5) 04/01/24 02:04 Total Bilirubin 0.3 mg/dL (0.15-1.2) 04/01/24 02:04 AST 15 U/L (0-32) 04/01/24 02:04 ALT 27 U/L (0-33) 04/01/24 02:04 Alkaline Phosphatase 68 U/L (35-105) 04/01/24 02:04 Troponin T Baseline 9 ng/L (0-10) 04/01/24 02:04 C-Reactive Protein 3.3 mg/L (0.0-4.9) 04/01/24 02:04 NT-Pro-B Natriuret Pep < 36 pg/mL (0-125) 04/01/24 02:04 Total Protein 6.2 g/dL (6.6-8.7) L 04/01/24 02:04 Albumin 4.0 g/dL (3.5-5.2) 04/01/24 02:04 Globulin 2.2 g/dL (1.3-4.6) 04/01/24 02:04 Urine Color Yellow (Yellow) 04/01/24 02:25 Urine Appearance Clear (CLEAR) 04/01/24 02:25 Urine pH 6 (5-7) 04/01/24 02:25 Ur Specific [place]ord 1.010 (1.005-1.030) 04/01/24 02:25 Urine Protein Neg (Negative) 04/01/24 02:25 Urine Glucose (UA) Norm (Normal) 04/01/24 02:25 Urine Ketones Negative (Negative) 04/01/24 02:25 Urine Blood Neg (Negative) 04/01/24 02:25 Urine Nitrate Negative (Negative) 04/01/24 02:25 Urine Bilirubin Neg (Negative) 04/01/24 02:25 Urine Urobilinogen Neg mg/dL (Negative) 04/01/24 02:25 Ur Leukocyte Esterase Negative (Negative) 04/01/24 02:25 Urine RBC 0-4 /hpf (0-2) H 04/01/24 02:25 Urine WBC 0-4 /hpf (0-5) H 04/01/24 02:25 Ur Squamous Epith Cells 0-4 /hpf (0-5) H 04/01/24 02:25 Amorphous Sediment Not Reportable 04/01/24 02:25 Urine Bacteria None /hpf (NONE) 04/01/24 02:25 All radiology interpretation(s) finalized by discharge Discharge Plan Discharge Patient Disposition: Home Clinical Impression: Headache Qualifiers: Headache type: other headache syndrome Qualified Code(s): G44.89 - Other headache syndrome HTN (hypertension) Qualifiers: Hypertension type: primary hypertension Qualified Code(s): I10 - Essential (primary) hypertension Condition: Stable Prescriptions: No Action albuterol sulfate 90 mcg/actuation aerosol powdr breath activated 2 inh INHALATION Q4H PRN (Reason: Shortness Of Breath) Mucinex DM 30-600 mg tablet extended release 12 hr 1 tab PO DAILY PRN (Reason: Congestion) lisinopril 10 mg tablet 10 mg PO DAILY ipratropium-albuterol 0.5 mg-3 mg(2.5 mg base)/3 mL solution for nebulization 3 ml INHALATION Q4H PRN (Reason: Shortness Of Breath Or Wheezing) fexofenadine-pseudoephedrine [Ruby-D 24 Hour] 180-240 mg tablet extended release 24 hr 1 tab PO QAM estradiol 0.01 % (0.1 mg/gram) cream See Rx Instructions .ROUTE .COMPLEX Qty: 42.5 3RF Dose Instruction: INSERT 1 G VAGINALLY THREE TIMES WEEKLY Rx Instructions: INSERT 1 G VAGINALLY 2-3 TIMES WEEKLY Spiriva Respimat 1.25 mcg/actuation mist 1 puff inhalation DAILY azelastine 137 mcg (0.1 %) aerosol,spray 2 spray intranasal BID Qty: 90 3RF Rx Instructions: administer into each nostril fluticasone propion-salmeterol [Wixela Inhub] 250-50 mcg/dose blister with device 1 inh inhalation BID Qty: 60 6RF montelukast [Singulair] 10 mg tablet 10 mg PO DAILY Qty: 90 3RF Fasenra Pen 30 mg/mL auto-injector 30 mg SUBCUT .[id number] Qty: 1 6RF Benadryl Allergy 25 mg tablet 50 mg PO Q8H PRN (Reason: allergic reaction) Qty: 60 0RF Discharge Orders: Discharge ED (Routine); Ordered 04/01/24 Ordered By: Carla Null Referrals: Frank Michele DO [Primary Care Provider] - 4-7 days Discharge Diet: Usual diet Discharge Activity: Resume usual activity Patient Instructions: Hypertension (ED) Activity Restrictions/Additional Instructions: Thank you for choosing [facility] for your healthcare needs today. Please realize this is an emergency room and that we are providing you with a medical screening exam and this may not be complete and all inclusive of all the testing and or work up that you may need to determine your ailment or severity of your illness. You have been screened and evaluated and felt safe for discharge. Health conditions do change or evolve sometimes and as such it is important that you follow up with your Primary Doctor to be re checked, 3-5 days is a general good time frame for follow up. You are always welcome to return to the ED for re assessment if your symptoms are worsening or you have new concerns Coding Level of Care Code ED Care Manager Cna for Robert Miranda
[2024-04-01 02:19] LABS: Basophils % 0.2 %; Hematocrit 42.2 % (36-47); Lymphocytes # 3.3 10^3/uL (0.8-4.8); Lymphocytes % 38.5 %; Mean Corpuscular HGB Conc 32.7 g/dL (30-55); Mean Corpuscular Hemoglobin 31.6 pg (27-33); Mean Corpuscular Volume 96.6 fl (85-98); Mean Platelet Volume 9.6 fL (7.4-10.4); Monocytes # 0.8 10^3/uL (0.2-0.9); Monocytes % 9.4 %; Neutrophils # 4.43 10^3/uL (1.8-7.7); Neutrophils % 51.6 %; Nucleated Red Blood Cells % 0 %; Platelet Count 280 10^3/cmm (157-399); Red Blood Count 4.37 10^6/uL (3.85-5.65); Red Cell Distribution Width 13.2 % (12.1-15.1)
[2024-04-01 02:23] VITALS: BP 130/82; PULSE 72; RESP 22; O2SAT 95
[2024-04-01 02:30] VITALS: BP 136/71; PULSE 71; RESP 19; O2SAT 96
[2024-04-01 02:41] LABS: Add Urine Culture? No; Bilirubin Urine Neg (Negative); Blood Urine Neg (Negative); Glucose Urine UA Norm (Normal); Ketones Urine Negative (Negative); Leukocyte Esterase Urine Negative (Negative); Nitrate Urine Negative (Negative); Protein Urine Neg (Negative); RBC Urine 0-4 /hpf (0-2); Squamous Epithelial Cell Urine 0-4 /hpf (0-5); Urine Appearance Clear (CLEAR); Urine Color Yellow (Yellow); Urobilinogen Urine Neg (Negative); WBC Urine 0-4 /hpf (0-5); pH Urine 6 (5-7)
[2024-04-01 02:42] LABS: Lactic Sepsis W/Reflex 1.3 mmol/L (0.5-2.2)
[2024-04-01 02:46] LABS: Troponin(5th) Baseline 9 ng/L (0-10)
[2024-04-01 02:56] LABS: Alanine Aminotransferase 27 U/L (0-33); Alkaline Phosphatase 68 U/L (35-105); Anion Gap 15.6 (5-19); Aspartate Amino Transferase 15 U/L (0-32); Blood Urea Nitrogen 21 mg/dL (8-23); C Reactive Protein 3.3 mg/L (0.0-4.9); Carbon Dioxide 23 mmol/L (22-29); Chloride 108 mmol/L (98-107); Globulin 2.2 g/dL (1.3-4.6); Glomerular Filtration Rate 56.4 mL/min (90-130); Glucose 117 mg/dL (65-115); NT Pro B Type Natriuretic Pept < 36 pg/mL (0-125); Osmolality Calculated 300 mOsm/kg (285-295); Potassium 3.6 mmol/L (3.5-5.1); Sodium 143 mmol/L (136-145); Total Bilirubin 0.3 mg/dL (0.15-1.2); Total Protein 6.2 g/dL (6.6-8.7)
[2024-04-01 03:01] LABS: Creatinine Clr Calc Pharmacy 67.8058
[2024-04-01 03:19] VITALS: BP 144/78; PULSE 70; RESP 14; O2SAT 98
== END 2024-04-01 03:15 | disposition home or self-care (01) ==
PROVIDERS: Emergency Provider Emergency Medicine; PCP Internal Medicine
DX: G44.89 Other headache syndrome (principal); I10 Essential (primary) hypertension; Z87.891 Personal history of nicotine dependence
CPT/HCPCS: 36415; 70450; 71045; 80053; 81001; 83605; 83880; 84484; 85025; 86140; 93005; 99285

== ENCOUNTER → 2024-12-31 11:05 | Outpatient (BNVA) | payer MEDICARE, SELFPAY | PROVIDERS: PCP Internal Medicine; Visit Provider Nurse Practitioner Women's Health | DX: M79.7 Fibromyalgia (principal); E66.9 Obesity, unspecified; Z13.1 Encounter for screening for diabetes mellitus; Z13.228 Encounter for screening for other metabolic disorders; Z13.0 Encounter for screening for diseases of the blood and blood-forming organs and certain disorders involving the immune mechanism | CPT/HCPCS: 80053; 80061; 82306; 83036; 84443; 85025 ==

== ENCOUNTER → 2025-01-11 13:12 | Outpatient (BNVA) | payer MEDICARE, SELFPAY | PROVIDERS: PCP Internal Medicine; Referring Provider Nurse Practitioner Women's Health; Visit Provider Surgery | DX: Z12.11 Encounter for screening for malignant neoplasm of colon (principal) | CPT/HCPCS: 99024; 99204 ==

== ENCOUNTER 2025-01-27 09:02 | Day surgery (SDC) | payer MEDICARE, SELFPAY ==
--- NOTE | 2025-01-27 09:28 | W.PM.OPSUD ---
Surgery/Procedure H&P Update DATE OF PROCEDURE: January 27, 2025 DATE H&P PERFORMED: 01/11/25 H&P UPDATE INFORMATION: I have reviewed H&P completed within last 30 days, I have examined patient prior to procedure, No changes to prior documentation, Changes to prior documentation as noted here and Risks and benefits of the procedure reviewed PLANNED PROCEDURE: Operation Date: 01/27/25 10:50 Proposed Procedures p Colonoscopy 77620 G0105 Z12.11(Not Applicable) - Rigo Delgado MD
[2025-01-27 09:29] VITALS: BP 134/98; PULSE 74; RESP 16; TEMP 36.3; O2SAT 98
[2025-01-27] MEDS: sodium chloride 0.9% 1,000 ML 15 ML IV (09:37)
--- NOTE | 2025-01-27 10:14 | P.ANESASSM_ITS ---
Pre-Anesthetic Assessment Height/Weight: Height 1.7 m Weight 78.471 kg Temp Pulse Resp BP Pulse Ox O2 Del Method 97.4 F L 74 16 134/98 98 Room Air 01/27/25 09:29 01/27/25 09:29 01/27/25 09:29 01/27/25 09:29 01/27/25 09:29 01/27/25 09:29 Preop Diagnosis: Screen Operation Date: 01/27/25 10:50 Proposed Procedures p Colonoscopy 10971 G0105 Z12.11(Not Applicable) - Rigo Delgado MD Familial anesthetic complications: none Was Beta Horacio taken within 24 hours: N/A Was Clonidine taken within 24 hours: N/A Last intake: Intake Last Liquid Date 01/26/25 Last Liquid Time 23:55 Last Solid Date 01/25/25 Last Solid Time 19:30 Social No alcohol and No tobacco Exam alert, oriented x 3, clear to auscultation bilaterally and regular rate & rhythm Airway Cervical ROM: within normal limits Mallampati: Class II Dentition: full History/ROS No significant complaints Pulmonary Asthma CV/HEM None reported None reported Hepatic None reported GI None reported Metabolic None reported Musc/skel None reported Neuropsych None reported Anesthetic Plan ASA status: 2 Anesthesia: MAC Risk of > 500 ml blood loss (7ml/kg in children): No Medications/Allergies Home Medications ?Medication ?Instructions ?Recorded ?Confirmed ?Last Taken ?Type albuterol sulfate 90 mcg/actuation 2 inh inhalation Q4 H PRN Shortness 03/01/20 01/27/25 01/26/25 History breath activated powder inhaler Of Breath dextromethorphan-guaifenesin 30 1 tab PO DAILY PRN Con gestion 03/01/20 01/27/25 01/26/25 History mg-600 mg tablet extended [id number] hr (Mucinex DM) ipratropium 0.5 mg-albuterol 3 mg 3 ml inhalation Q4H PRN Shortness 03/01/20 01/27/25 01/26/25 History (2.5 mg base)/3 mL nebulization Of Breath Or Wheezing soln diphenhydramine HCl 25 mg tablet 50 mg (2 x 25 mg) PO Q8H PRN 09/22/20 01/27/25 01/26/25 Rx (Benadryl Allergy) allergic reaction #60 tabs fexofenadine-pseudoephedrine ER 1 tab PO QAM 07/05/22 01/27/25 01/26/25 History 180 mg-240 mg tablet,ext.release 24 hr (Ruby-D 24 Hour) tiotropium bromide 1.25 1 puff inhalation DAILY 10/03/1801/27/25 01/26/25 History mcg/actuation mist for inhalation (Spiriva Respimat) fluticasone 250 mcg-salmeterol 50 1 inh inhalation BID #60 ea 09/19/23 01/27/25 01/26/25 Rx mcg/dose blistr powdr for inhalation (Wixela Inhub) montelukast 10 mg tablet 10 mg PO DAILY #90 tabs 11/2701/27/25 01/26/25 Rx (Singulair) benralizumab 30 mg/mL subcutaneous 30 mg SUBCUT .Q8Wee ks #1 mL 01/06/24 01/27/25 01/26/25 Rx auto-injector (Fasenra Pen) estradiol 0.01% (0.1 mg/gram) See Rx Instructions .Rou te 12/31/24 01/27/25 01/26/25 Rx vaginal cream .COMPLEX #42.5 grams polyethylene glycol 3350 17 17 g PO BID 5 days #170 gr ams 01/11/25 01/27/25 01/26/25 Rx gram/dose oral powder (Miralax) Allergies Allergy/AdvReac Type Severity Reaction Status Date / Time piperacillin (From Zosyn) Allergy Mild ALGY-Rash Verified 01/24/25 09:27 tazobactam (From Zosyn) Allergy Mild ALGY-Rash Verified 01/24/25 09:27 ceftriaxone (From Rocephin) Allergy ALGY-Rash Verified 01/24/25 09:27 morphine AdvReac Severe ADR-Vomitin Verified 01/24/25 09:27 g Current Medications Generic Name Dose Route Start Last Admin Trade Name Freq PRN Reason Stop Dose Admin Sodium Chloride 1,000 mls @ 15 mls/hr 01/27/25 09:10 01/27/25 09:37 Sodium Chloride 0.9% IV 01/28/25 09:09 15 mls/hr .Q24H PRN Administration COLONOSCOPY FLUIDS PFSH Anesthesia Medical History Obesity No pertinent past medical history neghx: dm,thyroid,dvt/pe PCP: [facility] COVID-19 (~10/2019) 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 [facility] [place]. Dr. Richardson. Indication: Uterine prolapse, irregular vaginal bleeding, stress urinary incontinence, cystocele, rectocele. H/O shoulder surgery History of cholecystectomy History of bladder surgery Family History Sister Lung disease Asthma Mother Diabetes Denies family history of Colon cancer Ovarian cancer Heart disease Hypercholesteremia Breast cancer Hypertension Uterine cancer Thyroid disease Stroke Social History Smoking and tobacco/nicotine status: never used tobacco/nicotine Data Anesthesia Cardiac Studies: Echocardiogram 01/02/22 Cardiac Event Monitor 07/09/21
[2025-01-27 10:41] VITALS: BP 116/74; PULSE 69; RESP 16; TEMP 36.5; O2SAT 94
[2025-01-27 10:50] VITALS: BP 115/78; PULSE 72; RESP 16; O2SAT 98
--- NOTE | 2025-01-27 11:25 | ANE.PACU2 ---
Inpatient post-anesthesia follow up: Airway intact: Yes Vital signs: Temperature 97.7 F Pulse Rate 72 Respiratory Rate 16 Blood Pressure 115/78 Pulse Oximetry 98 Oxygen Delivery Me thod Room Air Oxygen Flow Rate Fraction of Inspir ed Oxygen Hydration adequate: Yes Nausea and vomiting: Yes Pain level: 1 Mental status: Baseline
--- NOTE | 2025-01-27 11:27 | PC.NURSE ---
1100- 125/70, 97% room air, 70 HR, 18 resp
== END 2025-01-27 11:23 | disposition home or self-care (01) ==
PROVIDERS: PCP Family Medicine; Visit Provider Surgery
PROC: 0DJD8ZZ Inspection of Lower Intestinal Tract, Via Natural or Artificial Opening Endoscopic (ICD-10-PCS; CPT 45378; principal; 2025-01-27 10:50)
DX: Z12.11 Encounter for screening for malignant neoplasm of colon (principal); I10 Essential (primary) hypertension; K62.89 Other specified diseases of anus and rectum; Z79.899 Other long term (current) drug therapy; Z88.5 Allergy status to narcotic agent; Z88.8 Allergy status to other drugs, medicaments and biological substances; Z86.0100 Personal history of colon polyps, unspecified
CPT/HCPCS: G0105; J2704; J7030

== ENCOUNTER 2025-01-28 08:11 | Outpatient (CLI) | payer MEDICARE, SELFPAY ==
--- NOTE | 2025-01-28 08:20 | MM_ITS ---
WS: [id number] SCREENING DIGITAL BREAST TOMOSYNTHESIS MAMMOGRAM WITH CAD HISTORY: Z12.31 - Encounter for screening mammogram for malignant ... COMPARISON: 01/26/2024, 01/24/2023, 07/21/2018, 07/18/2016 Bilateral CC and MLO with tomosynthesis and synthetic mammography submitted. Computer aided detection analyzed. Breast composition: There are scattered areas of fibroglandular density. New 6 x 5 x 6 mm mass in the anterior RIGHT breast at 6:00. This may be due to 2 superimposed masses/lymph nodes. Further evaluation is necessary. Also, there has been a slight change in density along the scar site of the prior LEFT stereotactic biopsy. There are some dystrophic calcifications and a biopsy clip. Seen best on the LEFT MLO projection is an area of increasing distortion and spiculation measuring 7 x 8 mm. MM/MM [facility] tomosynthesis [id number] IMPRESSION: BI-RADS: 0 - Incomplete: Need additional imaging evaluation. FOLLOW UP: Need Additional Imaging RIGHT breast: Spot compression views (CC and MLO). True ML. Ultrasound to follo w if abnormality persists. LEFT breast: Spot compression views (CC and MLO). True ML. Ultrasound to follow if abnormality persists.
== END 2025-01-28 08:12 | disposition home or self-care (01) ==
LOC: RAD 08:12
PROVIDERS: PCP Family Medicine; Visit Provider Nurse Practitioner Women's Health
DX: Z12.31 Encounter for screening mammogram for malignant neoplasm of breast (principal); R92.323 Mammographic fibroglandular density, bilateral breasts; N63.15 Unspecified lump in the right breast, overlapping quadrants; R92.1 Mammographic calcification found on diagnostic imaging of breast; N64.89 Other specified disorders of breast
CPT/HCPCS: 77063; 77067; 80053; 80061; 82306; 83036; 84443; 85025

== ENCOUNTER 2025-02-21 10:25 | Outpatient (CLI) | payer MEDICARE, SELFPAY ==
--- NOTE | 2025-02-21 10:35 | MM_ITS ---
WS: [id number] ADDITIONAL VIEWS BILATERAL MAMMOGRAM WITH DIGITAL BREAST TOMOSYNTHESIS. Bilateral breast ultrasound, limited HISTORY: Bilateral abnormal findings on screening mammogram. COMPARISON: None available. Spot compression views RIGHT breast in CC, MLO projections and true ML submitted with digital breast tomosynthesis and SM. Breast composition: There are scattered areas of fibroglandular density. The asymmetry in the upper outer quadrant of the LEFT breast nearly completely resolves on the CC projection with additional imaging. There is a biopsy clip present. The asymmetry that is most significant on the MLO projection after additional views is very similar to the study from 2015. There are 2 small cysts in the anterior RIGHT breast which are very closely associated with each other. The small cluster measures 6 x 3 x 3 mm. Bilateral breast ultrasound, limited. Small cluster of cysts in the anterior RIGHT breast near 6:00 measures 6 x 2 x 3 mm. This corresponds to the mammographic abnormality. Dense tissue in the lateral LEFT breast. This corresponds to the area of long-term stability noted mammographically. No shadowing or increased vascularity. MM/MM diag BI tomosynthesis [id number] IMPRESSION: BI-RADS: 2 - Benign. FOLLOW UP: 1 Year Follow-up Benign cysts anterior RIGHT breast and no suspicious mass in the LEFT breast.
--- NOTE | 2025-02-21 11:28 | US_ITS ---
WS: [id number] ADDITIONAL VIEWS BILATERAL MAMMOGRAM WITH DIGITAL BREAST TOMOSYNTHESIS. Bilateral breast ultrasound, limited HISTORY: Bilateral abnormal findings on screening mammogram. COMPARISON: None available. Spot compression views RIGHT breast in CC, MLO projections and true ML submitted with digital breast tomosynthesis and SM. Breast composition: There are scattered areas of fibroglandular density. The asymmetry in the upper outer quadrant of the LEFT breast nearly completely resolves on the CC projection with additional imaging. There is a biopsy clip present. The asymmetry that is most significant on the MLO projection after additional views is very similar to the study from 2015. There are 2 small cysts in the anterior RIGHT breast which are very closely associated with each other. The small cluster measures 6 x 3 x 3 mm. Bilateral breast ultrasound, limited. Small cluster of cysts in the anterior RIGHT breast near 6:00 measures 6 x 2 x 3 mm. This corresponds to the mammographic abnormality. Dense tissue in the lateral LEFT breast. This corresponds to the area of long-term stability noted mammographically. No shadowing or increased vascularity. US/US breast BI limited* [id number] IMPRESSION: BI-RADS: 2 - Benign. FOLLOW UP: 1 Year Follow-up Benign cysts anterior RIGHT breast and no suspicious mass in the LEFT breast.
== END 2025-02-21 10:26 | disposition home or self-care (01) ==
LOC: RAD 10:25
PROVIDERS: PCP Family Medicine; Visit Provider Nurse Practitioner Women's Health
DX: R92.8 Other abnormal and inconclusive findings on diagnostic imaging of breast (principal); N60.11 Diffuse cystic mastopathy of right breast; R92.323 Mammographic fibroglandular density, bilateral breasts; N63.21 Unspecified lump in the left breast, upper outer quadrant
CPT/HCPCS: 76642; 77062; G0279